=== PATIENT | female | born 1950 | race Caucasian/White ===

== ENCOUNTER → 2017-12-30 12:21 | Outpatient (CLI) | payer OTHER, SELFPAY | PROVIDERS: Family Provider Physician Assistant; PCP Physician Assistant | DX: R35.0 Frequency of micturition (principal); R30.0 Dysuria | CPT/HCPCS: 87086 ==

== ENCOUNTER → 2018-02-26 14:59 | Outpatient (CLI) | payer OTHER, SELFPAY ==
[2018-02-26 16:22] LABS: Alanine Aminotransferase 33 IU/L (9-52); Albumin 4.6 g/dL (3.5-5.0); Albumin Globulin Ratio 1.6 (1.0-2.8); Alkaline Phosphatase 68 U/L (38-126); Aspartate Aminotransferase 29 IU/L (14-36); BUN Creatinine Ratio 14.3 (6-22); Bilirubin Total 0.5 mg/dL (0.2-1.3); Blood Urea Nitrogen 10 mg/dL (7-17); Calcium 9.7 mg/dL (8.4-10.2); Carbon Dioxide 29 mmol/L (22-32); Chloride 90 mmol/L (98-107); Cholesterol 209 mg/dL (140-199); Estimated Glomerular Filt Rate > 60.0 mL/min (>60); Globulin 2.9 g/dL (1.7-4.1); Glucose 101 mg/dL (80-110); HDL Cholesterol 93 mg/dL (40-60); HEMOLYSIS < 15 (0-50); LDL Cholesterol Calculated 89 mg/dL (<100); Potassium 4.1 mmol/L (3.4-5.1); Sodium 134 mmol/L (137-145); Total Protein 7.5 g/dL (6.3-8.2); Triglycerides 134 mg/dL (35-150)
[2018-02-26 16:37] LABS: Microalbumi Creatinin Ratio Ur 6.6 ug/mg CR (<30); Microalbumin Urine Random < 0.6 mg/dL (0-1.6)
[2018-03-02 15:30] LABS: Fecal Immunochemical Test NOT DETECTED
== END ==
PROVIDERS: PCP Physician Assistant; Visit Provider Physician Assistant
DX: E03.9 Hypothyroidism, unspecified (principal); E78.2 Mixed hyperlipidemia; I10 Essential (primary) hypertension; M81.0 Age-related osteoporosis without current pathological fracture; Z12.11 Encounter for screening for malignant neoplasm of colon
CPT/HCPCS: 36415; 80053; 80061; 82043; 82274; 82306; 82570; 84443

== ENCOUNTER → 2018-08-25 15:10 | Outpatient (CLI) | payer OTHER, SELFPAY ==
--- NOTE | 2018-08-25 | DI.MG.S_ITS ---
BILATERAL DIGITAL SCREENING MAMMOGRAM 3D/2D WITH CAD: 08/25/2018 CLINICAL: Routine screening. Comparison is made to exams dated: 02/01/2016 mammogram, 11/22/2014 mammogram, and 11/10/2014 mammogram - [facility]. There are scattered fibroglandular elements in both breasts. Current study was also evaluated with a Computer Aided Detection (CAD) system. No significant masses, calcifications, or other findings are seen in either breast. There has been no significant interval change. IMPRESSION: NEGATIVE There is no mammographic evidence of malignancy. A 1 year screening mammogram is recommended. This exam was interpreted at Station ID: [id number]. NOTE: For mammograms, a report in lay terms will be sent to the patient. Approximately 15% of breast malignancies will not be visualized mammographically. In the management of a palpable breast mass, a negative mammogram must not discourage biopsy of a clinically suspicious lesion. Electronically Signed By: Kassie pham/mindi:08/25/2018 21:03:22 copy to: JERMAINE SOLIS letter sent: Normal Exam ACR BI-RADS Category 1: Negative 3341F
== END ==
PROVIDERS: Family Provider Physician Assistant; PCP Physician Assistant; Visit Provider Physician Assistant
DX: Z12.31 Encounter for screening mammogram for malignant neoplasm of breast (principal)
CPT/HCPCS: 77063; 77067

== ENCOUNTER → 2018-09-24 13:57 | Outpatient (CLI) | payer OTHER, SELFPAY ==
[2018-09-24 14:55] LABS: BUN Creatinine Ratio 17.1 (6-22); Blood Urea Nitrogen 12 mg/dL (7-17); Calcium 10.2 mg/dL (8.4-10.2); Carbon Dioxide 34 mmol/L (22-32); Chloride 87 mmol/L (98-107); Estimated Glomerular Filt Rate > 60.0 mL/min (>60); Glucose 100 mg/dL (80-110); HEMOLYSIS < 15 (0-50); Potassium 3.9 mmol/L (3.4-5.1); Sodium 131 mmol/L (137-145)
[2018-09-24 17:39] LABS: Thyroid Stimulating Hormone 2.79 uIU/mL (0.47-4.68)
== END ==
PROVIDERS: PCP Physician Assistant; Visit Provider Physician Assistant
DX: E03.9 Hypothyroidism, unspecified (principal); I10 Essential (primary) hypertension
CPT/HCPCS: 36415; 80048; 84443

== ENCOUNTER → 2018-10-13 15:14 | Outpatient (CLI) | payer OTHER, SELFPAY | PROVIDERS: PCP Physician Assistant; Visit Provider Physician Assistant | DX: M85.852 Other specified disorders of bone density and structure, left thigh (principal); Z78.0 Asymptomatic menopausal state; E07.9 Disorder of thyroid, unspecified; Z82.62 Family history of osteoporosis | CPT/HCPCS: 77080 ==

== ENCOUNTER → 2019-01-18 14:49 | Outpatient (CLI) | payer OTHER, SELFPAY ==
--- NOTE | 2019-01-24 14:12 | PM.PFT.1 ---
Pulmonary Function Test Referral & Results Date Patient Seen: 01/18/19 Requesting provider: Margoth [place] Indication: Cough Results: The spirometry demonstrates an FVC of 3.23 L which is 103% of predicted. The FEV1 was measured at 2.40 L which is 100% of predicted. The FEV1/FVC ratio was 74 which is 96 % of predicted. Following the administration of bronchodilator there was no appreciable change to above normal numbers. Lung volumes show an SVC of 3.22 L which is 109% of predicted. The diffusing capacity was measured at 16.18 which is 66 % of predicted. No hemoglobin value was provided, so no correction for potential anemia could be made, if appropriate. The maximum voluntary ventilation was reduced Interpretation: This study demonstrates normal spirometry but reduced diffusing capacity, suggesting disease of the capillary alveolar level Reduction in maximum voluntary ventilation without other evidence of abnormality suggest possible neuromuscular disorder Clinical correlation suggested
== END ==
PROVIDERS: PCP Physician Assistant; Visit Provider Physician Assistant
DX: R05 Cough (principal)
CPT/HCPCS: 94060; 94726; 94729

== ENCOUNTER → 2019-03-11 16:11 | Outpatient (CLI) | payer OTHER, SELFPAY ==
[2019-03-14 22:36] LABS: Fecal Immunochemical Test DETECTED (NOT DETECTED)
== END ==
PROVIDERS: PCP Physician Assistant; Visit Provider Physician Assistant
DX: Z12.11 Encounter for screening for malignant neoplasm of colon (principal)
CPT/HCPCS: 82274

== ENCOUNTER 2019-04-28 08:43 | Day surgery (SDC) | payer OTHER, SELFPAY ==
[2019-04-28] VITALS (7 sets, daily range): BP systolic 93–124; BP diastolic 62–86; PULSE 80–103; RESP 9–16; TEMP 36–36.4; O2SAT 93–96; BMI 16.4
--- NOTE | 2019-04-28 | PATH_ITS ---
[facility] Accession Number: [id number] . 01 Material submitted: . colon - POLYP AT 15CM . 01 Clinical history: . SCREENING COLONOSCOPY W/FOBT . 02 Diagnosis: Colon at 15 cm, Polyp: Tubular adenoma. MRV 04/29/2019 1107 Local . 02 Electronically signed: . Coy Duvall MD, PhD, Pathologist NPI- [id number] . 01 Gross description: . POLYP AT 15CM: Received in formalin are multiple fragment(s) of serna, soft tissue measuring 0.1 x 0.1 x 0.1 cm to 0.3 x 0.2 x 0.2 cm submitted entirely in 1 cassette(s) [place] [place]28/[place] 2325 Local . 02 Pathologist provided ICD-10: D12.6 . 02 CPT . 297836 Performed at: 01 [facility] [address] [facility], [place], [place] [id number] MD Josef Domínguez MD Phone: [phone] Performed at: 02 [facility] [address] [place], [place] [id number] MD Nikky Hendricks MD Phone: [phone]
--- NOTE | 2019-04-28 09:46 | PM.HP.1 ---
History of Present Illness History of Present Illness Date Patient Seen: 04/28/19 Time Patient Seen: 09:46 Chief complaint: [id number] SCREENING COLONOSCOPY W/FOBT Narrative: The patient is a woman who has never had a colonoscopy here for screening exam. She had a positive fecal occult blood test Patient History Medical History Constipation (Acute) Eczema (Acute) Environmental allergies (Acute) Former smoker, stopped smoking in distant past (Acute) GERD (gastroesophageal reflux disease) (Acute) Hyperlipidemia (Chronic) Hypertension (Chronic) Hypothyroidism (Chronic) Surgical History Anesthesia (Resolved) Fracture of wrist (Resolved) History of cataract removal with insertion of prosthetic lens (~2013) Status post breast reduction Status post loop electrosurgical excision procedure (LEEP) of cervix (~2013) Status post tonsillectomy and adenoidectomy Family & Social History Family History Father Age: 94 Cataracts, bilateral Chronic obstructive pulmonary disease, unspecified COPD type Mother Cerebrovascular accident (CVA), unspecified mechanism Congestive heart failure Sister Cataracts, bilateral Social History: household members none Tobacco & Substance use: Smoking Status Former smoker alcohol intake former Meds Home Medications and Allergies Home Medications Medication Instructions Recorded Confirmed Type clobetasol 0.5 % TOPICAL BID #1 tube 03/04/17 04/28/19 Rx Multivitamin See Rx Instructions .ROUTE .COMPLEX 02/22/18 04/28/19 History betamethasone dipropionate 0.05 % 1 applictn TOP BID PRN #60 ml 03/23/18 04/28/19 Rx lotion zolpidem 5 mg tablet 2.5 - 5 mg PO HS #30 tab 07/26/18 04/28/19 Rx duloxetine 60 mg capsule,delayed 60 mg PO QDAY #90 cap 09/22/18 04/28/19 Rx release lamotrigine 250 mg tablet,extended 250 mg PO HS #90 tab 09/22/18 04/28/19 Rx release 24 hr felodipine 5 mg tablet,extended 5 mg PO QDAY #90 tab 12/21/18 04/28/19 Rx release 24 hr chlorthalidone 25 mg tablet See Rx Instructions .ROUTE 12/31/18 04/28/19 Rx .COMPLEX #90 tab simvastatin 20 mg tablet See Rx Instructions .ROUTE 12/31/18 04/28/19 Rx .COMPLEX #90 tab metoprolol tartrate 25 mg tablet 12.5 mg PO BID #90 tab 01/17/19 04/28/19 Rx sulfacetamide sodium 10 % shampoo See Rx Instructions .ROUTE 02/09/19 04/28/19 Rx .COMPLEX #237 milliliter Synthroid 112 mcg tablet 112 mcg PO DAILY #90 tab NS 03/22/19 04/28/19 Rx clonazepam 0.5 mg tablet 0.5 mg PO HS #30 tab 04/18/19 04/28/19 Rx fexofenadine [Bharti Allergy] 60 mg PO SEEINSTR 04/28/19 04/28/19 History omeprazole magnesium [Prilosec OTC] 20 mg PO DAILY PRN 04/28/19 04/28/19 History Allergies Allergy/AdvReac Type Severity Reaction Status Date / Time oxycodone [OXYCODONE] AdvReac Intermediate NAUSEA AND Verified 04/28/19 09:04 VOMITING lisinopril [LISINOPRIL] AdvReac Mild COUGH Verified 04/28/19 09:04 Review of Systems Review of Systems ROS Unobtainable: All systems reviewed & are unremarkable except as noted in HPI and below Exam Vital Signs (past 8 hours): - 04/28/19 09:12 Temperature 96.8 F L Pulse Rate 103 H Respiratory Rate 16 Blood Pressure 124/86 Pulse Oximetry 96 Oxygen Delivery Method Room Air Narrative Exam Narrative: Pleasant cooperative patient no apparent distress. Lungs are clear to auscultation. No rales or rhonchi. Heart regular rate and rhythm no murmur gallop. Abdomen is soft nontender without mass. No obvious hernias. Patient is alert and oriented x3. Assessment & Plan Assessment & Plan narrative: The patient for a screening colonoscopy. I have discussed the procedure with them. Risks of bleeding, perforation which would necessitate major operation, failure to find remove all lesions, the potential tattoo were all discussed. All questions were answered. They wished to proceed.
[2019-04-28] MEDS: MIDAZOLAM 5 MG/5 ML VIAL IV (09:48)
[2019-04-28] MEDS: fentaNYL 250 MCG/5 ML INJ IV (09:48)
--- NOTE | 2019-04-28 09:52 | PM.PREOP ---
Pre-operative Note Interval Note History & Physical reviewed/Exam performed by Physician: Yes Changes to H&P: No ASA Class (for procedural sedation): II
--- NOTE | 2019-04-28 10:15 | PM.OP.ENDO ---
Operative Date/Time/Diagnoses Date of procedure: 04/28/19 Time of procedure: 10:15 Pre-op diagnosis: Positive fecal occult blood test. This is her 1st colonoscopy Post-op diagnosis: same (Polyp at 15 cm and 1 near the anal verge placed in the same container) Procedure & Clinicians Study performed: Colonoscopy with cold biopsy Same procedure as scheduled: Yes Indications: Screening Surgeon: Alejandro Nichole Procedure Notes SCOAP/Timeout: Performed Procedure in detail: The patient was placed in the left lateral decubitus position and underwent IV sedation directed by the surgeon consisting of fentanyl and Versed. Digital exam was unremarkable. The scope was inserted and advanced through the rectum into the sigmoid, descending, transverse, and ascending colon. Pressure was applied we made our way into the cecum. The cecum was identified by the ileocecal valve and the appendiceal opening.. The scope was gradually brought out. Two Polyps were found. One was at 15 cm from the anal verge and 1 was near the anal verge. These were placed in the same container after completely removing them with cold biopsy forceps. The scope ultimately was retroflexed in the rectum. The appearance was normal. The scope was removed and the patient tolerated the procedure well. The prep was very good Scope withdrawal time: 8 minutes(10 total) Sedation minutes: 37 Findings: polyp (Two small) Specimen(s): other (Polyps) Complications: none Post-procedure Recommendations: Colonscopy in 5 years Follow up: as needed Disposition: PACU
[2019-04-28] MEDS: ONDANSETRON 4 MG/2 ML INJ IV (10:16)
--- NOTE | 2019-04-28 10:53 | SUR.PHASEII ---
Patient mildly drowsy. Call light within reach.
--- NOTE | 2019-04-28 11:00 | SUR.PHASEII ---
O2 sat 89-95%RA. Deep breaths encouraged.
== END 2019-04-28 11:22 | disposition home or self-care (01) ==
PROVIDERS: PCP Physician Assistant; Visit Provider Specialist
PROC: 0DJD8ZZ Inspection of Lower Intestinal Tract, Via Natural or Artificial Opening Endoscopic (ICD-10-PCS; CPT 45378; principal; 2019-04-28 09:45)
DX: D12.6 Benign neoplasm of colon, unspecified (principal); K59.00 Constipation, unspecified; I10 Essential (primary) hypertension; E78.5 Hyperlipidemia, unspecified; E03.9 Hypothyroidism, unspecified
CPT/HCPCS: 45380; 99152; 99153; J2250; J2405; J3010

== ENCOUNTER → 2019-11-07 15:44 | Outpatient (CLI) | payer OTHER, SELFPAY ==
--- NOTE | 2019-11-07 16:01 | DI.MG.S_ITS ---
Patient Name: KATIE LEE date: 1950 Sex: F Attending Physician: Rubén Indications: Date: 11/07/2019 15:58 At the request of: YADIRA SOLIS Procedure: MM screening mammo BI BILATERAL DIGITAL SCREENING MAMMOGRAM 3D/2D WITH CAD: 11/07/2019 CLINICAL: Routine screening. Comparison is made to exams dated: 08/25/2018 mammogram, 02/01/2016 mammogram, and 11/22/2014 mammogram - [facility]. There are scattered fibroglandular elements in both breasts. Current study was also evaluated with a Computer Aided Detection (CAD) system. No significant masses, calcifications, or other findings are seen in either breast. There has been no significant interval change. IMPRESSION: NEGATIVE There is no mammographic evidence of malignancy. A 1 year screening mammogram is recommended. This exam was interpreted at Station ID: [id number]. NOTE: For mammograms, a report in lay terms will be sent to the patient. Approximately 15% of breast malignancies will not be visualized mammographically. In the management of a palpable breast mass, a negative mammogram must not discourage biopsy of a clinically suspicious lesion. Electronically Signed By: Eugene Contreras M.D., jr/mindi:11/07/2019 17:04:09 copy to: JERMAINE SOLIS letter sent: Normal Exam ACR BI-RADS Category 1: Negative 3341F
[2019-11-07 17:00] LABS: Creatinine Urine Random 151.8 mg/dL
[2019-11-07 17:04] LABS: Microalbumi Creatinin Ratio Ur 8.5 ug/mg CR (<30); Microalbumin Urine Random 1.3 mg/dL (0-1.6)
[2019-11-07 18:06] LABS: Alanine Aminotransferase 28 IU/L (<35); Albumin 4.7 g/dL (3.5-5.0); Albumin Globulin Ratio 1.5 (1.0-2.8); Alkaline Phosphatase 74 U/L (38-126); Aspartate Aminotransferase 41 IU/L (14-36); BUN Creatinine Ratio 16.9 (6-22); Bilirubin Total 0.8 mg/dL (0.2-1.3); Blood Urea Nitrogen 13 mg/dL (7-17); Calcium 9.5 mg/dL (8.4-10.2); Carbon Dioxide 28 mmol/L (22-32); Chloride 91 mmol/L (98-107); Cholesterol 215 mg/dL (140-199); Estimated Glomerular Filt Rate > 60.0 mL/min (>60); Globulin 3.2 g/dL (1.7-4.1); Glucose 100 mg/dL (80-110); HDL Cholesterol 89 mg/dL (40-60); HEMOLYSIS < 15 (0-50); LDL Cholesterol Calculated 90 mg/dL (<100); Potassium 3.2 mmol/L (3.4-5.1); Sodium 131 mmol/L (137-145); Total Protein 7.9 g/dL (6.3-8.2); Triglycerides 182 mg/dL (35-150)
[2019-11-07 18:36] LABS: Thyroid Stimulating Hormone 1.17 uIU/mL (0.47-4.68)
== END ==
PROVIDERS: PCP Physician Assistant; Referring Provider Physician Assistant; Visit Provider Physician Assistant
DX: Z12.31 Encounter for screening mammogram for malignant neoplasm of breast (principal); E03.9 Hypothyroidism, unspecified; E78.2 Mixed hyperlipidemia; I10 Essential (primary) hypertension; E78.1 Pure hyperglyceridemia
CPT/HCPCS: 36415; 77063; 77067; 80053; 80061; 82043; 82570; 84443

== ENCOUNTER → 2019-12-19 15:26 | Outpatient (CLI) | payer OTHER, SELFPAY | PROVIDERS: PCP Registered Nurse Diabetes Educator; Visit Provider Registered Nurse Diabetes Educator | DX: R82.90 Unspecified abnormal findings in urine (principal) | CPT/HCPCS: 87077; 87086 ==

== ENCOUNTER → 2020-01-25 13:22 | Outpatient (CLI) | payer OTHER, SELFPAY ==
[2020-01-25 14:52] LABS: Alanine Aminotransferase 32 IU/L (<35); Albumin 4.6 g/dL (3.5-5.0); Albumin Globulin Ratio 1.3 (1.0-2.8); Alkaline Phosphatase 82 U/L (38-126); Aspartate Aminotransferase 39 IU/L (14-36); BUN Creatinine Ratio 15.7 (6-22); Bilirubin Total 0.8 mg/dL (0.2-1.3); Blood Urea Nitrogen 13 mg/dL (7-17); Calcium 9.8 mg/dL (8.4-10.2); Carbon Dioxide 29 mmol/L (22-32); Chloride 96 mmol/L (98-107); Estimated Glomerular Filt Rate > 60.0 mL/min (>60); Globulin 3.5 g/dL (1.7-4.1); Glucose 109 mg/dL (80-110); HEMOLYSIS < 15 (0-50); Potassium 3.2 mmol/L (3.4-5.1); Sodium 135 mmol/L (137-145); Total Protein 8.1 g/dL (6.3-8.2)
== END ==
PROVIDERS: PCP Registered Nurse Diabetes Educator; Referring Provider Registered Nurse Diabetes Educator; Visit Provider Registered Nurse Diabetes Educator
DX: E03.9 Hypothyroidism, unspecified (principal); R74.8 Abnormal levels of other serum enzymes
CPT/HCPCS: 36415; 80053

== ENCOUNTER → 2020-04-30 15:26 | Outpatient (CLI) | payer OTHER, SELFPAY ==
--- NOTE | 2020-04-30 15:27 | DI.US.S_ITS ---
PROCEDURE: US ABDOMEN LIMITED INDICATIONS: LFT elevation, alcoholism in remission TECHNIQUE: Real-time focused scanning was performed of the abdomen, with image documentation. COMPARISON: [facility], CT, THORAX WITHOUT CONTRAST, 02/21/2015, 9:13. FINDINGS: Liver is diffusely increased in echogenicity. Normal hepatic size. Within the left hepatic lobe, there is a hypoechoic oval lesion with indistinct margins measuring approximately 1.0 x 0.6 x 0.9 cm. No definitive posterior acoustic enhancement. There is no internal vascularity on color Doppler interrogation. No gallstones identified. Normal gallbladder wall. No pericholecystic fluid. Negative sonographic Merchant sign. No biliary dilatation. The pancreas is hyperechoic in appearance suggestive of fatty infiltration. IMPRESSION: 1. Increased hepatic echogenicity is nonspecific but likely represents steatosis. 2. Oval hypoechoic lesion within the left hepatic lobe is suggestive of a cyst, but given the indistinct margins and absence of definitive posterior acoustic enhancement, a small solid lesion cannot be excluded. Consider further evaluation with a liver protocol MRI or CT. Dictated by: Juanjo Terrazas [facility] Interpreted: Josef Abernathy MD on 04/30/2020 at 16:14 Approved by: Josef Abernathy M.D. on 05/01/2020 at 16:04
== END ==
PROVIDERS: PCP Registered Nurse Diabetes Educator; Referring Provider Registered Nurse Diabetes Educator; Visit Provider Registered Nurse Diabetes Educator
DX: E87.1 Hypo-osmolality and hyponatremia (principal); K76.9 Liver disease, unspecified; E87.6 Hypokalemia; R74.8 Abnormal levels of other serum enzymes; I10 Essential (primary) hypertension; F10.21 Alcohol dependence, in remission
CPT/HCPCS: 76705

== ENCOUNTER → 2020-05-10 17:36 | Outpatient (CLI) | payer OTHER, SELFPAY ==
--- NOTE | 2020-05-10 17:37 | DI.MRI.S_ITS ---
PROCEDURE: MR ABDOMEN WO/W CON INDICATIONS: liver lesion TECHNIQUE: Coronal HASTE, axial 2D FLASH in- and [id number]; axial breath-hold T2 FSE. Dynamic axial VIBE during the administration of contrast; post-contrast coronal VIBE or 2D FLASH with fat saturation from the hepatic dome to the iliac crests. Optional diffusion weighted imaging and ADC may be performed. COMPARISON: [facility], US, US ABDOMEN LIMITED, 04/30/2020, 15:49. FINDINGS: Image quality: Excellent. Lung bases: No basal pleural effusions. Heart size is normal. Solid organs: Liver is normal in size and enhancement. There is a small ovoid cyst corresponding to the finding on ultrasound from 04/30/20, within the anterior left lateral hepatic segment. This shows no internal enhancement or mural enhancing nodularity. Gallbladder appears normal with a Phrygian Cap morphology at the distal fundus.. Biliary system is non dilated. Pancreas is normal in morphology. Spleen is normal in size and enhancement. No adrenal nodules. Both kidneys demonstrate normal size and enhancement, without hydronephrosis. Nodes and vessels: No retroperitoneal or mesenteric adenopathy by size criteria. Aorta and inferior vena cava are normal in size. Bowel and peritoneum: Unenhanced bowel loops are normal in caliber. No free fluid. Bones and soft tissues: No ventral hernias. Bone marrow is normal in overall signal. IMPRESSION: Small ovoid simple cyst produces the hypoechoic structure of recent ultrasound concern. No follow-up recommended. Dictated by: Carson Gunn M.D. on 05/11/2020 at 9:31 Approved by: Carson Gunn M.D. on 05/11/2020 at 10:23
== END ==
PROVIDERS: PCP Registered Nurse Diabetes Educator; Referring Provider Registered Nurse Diabetes Educator; Visit Provider Registered Nurse Diabetes Educator
DX: K76.89 Other specified diseases of liver (principal); R74.8 Abnormal levels of other serum enzymes; F10.21 Alcohol dependence, in remission
CPT/HCPCS: 74183

== ENCOUNTER → 2020-05-15 15:19 | Outpatient (CLI) | payer OTHER, SELFPAY ==
[2020-05-15 17:22] LABS: Alanine Aminotransferase 31 IU/L (<35); Albumin 4.3 g/dL (3.5-5.0); Albumin Globulin Ratio 1.3 (1.0-2.8); Alkaline Phosphatase 70 U/L (38-126); Aspartate Aminotransferase 36 IU/L (14-36); BUN Creatinine Ratio 15.1 (6-22); Bilirubin Total 0.5 mg/dL (0.2-1.3); Blood Urea Nitrogen 11 mg/dL (7-17); Calcium 9.7 mg/dL (8.4-10.2); Carbon Dioxide 32 mmol/L (22-32); Chloride 94 mmol/L (98-107); Estimated Glomerular Filt Rate > 60.0 mL/min (>60); Globulin 3.3 g/dL (1.7-4.1); Glucose 95 mg/dL (80-110); HEMOLYSIS < 15 (0-50); Potassium 3.7 mmol/L (3.4-5.1); Sodium 133 mmol/L (137-145); Total Protein 7.6 g/dL (6.3-8.2)
[2020-05-15 17:27] LABS: HEMOLYSIS < 15 (0-50); Iron 135 ug/dL (37-170)
[2020-05-15 17:39] LABS: Percent Iron Saturation 47 % (15-50); Total Iron Binding Capacity 286 ug/dL (265-497); Transferrin 236 mg/dL (206-381)
[2020-05-15 18:52] LABS: Ferritin 135 ng/mL (11-264)
[2020-05-16 04:43] LABS: Hepatitis B Core AB w/Reflex Negative (Negative)
[2020-05-16 06:35] LABS: Hepatitis A Ab IgM Negative (Negative); Hepatitis A Ab Total Positive (Negative)
[2020-05-17 19:16] LABS: Hepatitis B Surface Antigen NEGATIVE s/c (NEGATIVE)
[2020-05-17 19:18] LABS: Hep C Virus Ab w/Reflex Quant NEGATIVE s/c (NEGATIVE)
== END ==
PROVIDERS: PCP Registered Nurse Diabetes Educator; Referring Provider Registered Nurse Diabetes Educator; Visit Provider Registered Nurse Diabetes Educator
DX: E87.1 Hypo-osmolality and hyponatremia (principal); R74.8 Abnormal levels of other serum enzymes; E87.6 Hypokalemia; I10 Essential (primary) hypertension
CPT/HCPCS: 36415; 80053; 82728; 83540; 83550; 86704; 86708; 86803; 87340

== ENCOUNTER → 2020-09-03 15:35 | Outpatient (CLI) | payer OTHER, SELFPAY ==
[2020-09-03 17:05] LABS: Add Manual Diff / Slide Review NO; Basophils Absolute Auto 100 /uL (0-100); Basophils Percent Auto 1.1 % (0-2); Eosinophils Absolute Auto 200 /uL (0-450); Hematocrit 40.9 % (36-46); Hemoglobin 14.3 g/dL (12.0-16.0); Lymphocytes Absolute Auto 1700 /uL (1100-4500); Lymphocytes Percent Auto 21.3 % (25-40); Mean Corpuscular Hemoglobin 34.2 PG (26-34); Mean Corpuscular Volume 97.8 fL (80-100); Monocytes Absolute Auto 1100 /uL (0-900); Monocytes Percent Auto 14.3 % (3-14); Neutrophils Absolute Auto 4700 /uL (1500-7000); Neutrophils Percent Auto 60.3 % (50-75); Platelet Count 374 X10^3/uL (150-400); Red Blood Cell Count 4.19 X10^6/uL (4.0-5.2); White Blood Cell Count 7.9 X10^3/uL (4.5-11.0)
[2020-09-03 17:16] LABS: Alanine Aminotransferase 23 IU/L (<35); Albumin 4.4 g/dL (3.5-5.0); Albumin Globulin Ratio 1.3 (1.0-2.8); Alkaline Phosphatase 75 U/L (38-126); Aspartate Aminotransferase 35 IU/L (14-36); BUN Creatinine Ratio 14.9 (6-22); Bilirubin Total 0.6 mg/dL (0.2-1.3); Blood Urea Nitrogen 11 mg/dL (7-17); Calcium 9.7 mg/dL (8.4-10.2); Carbon Dioxide 28 mmol/L (22-32); Chloride 97 mmol/L (98-107); Estimated Glomerular Filt Rate > 60.0 mL/min (>60); Globulin 3.4 g/dL (1.7-4.1); Glucose 107 mg/dL (80-110); HEMOLYSIS < 15 (0-50); Potassium 3.8 mmol/L (3.4-5.1); Sodium 136 mmol/L (137-145); Total Protein 7.8 g/dL (6.3-8.2)
[2020-09-03 17:54] LABS: HIV 1 & 2 Ab/Ag 4th Gen Combo NEGATIVE (NEGATIVE)
[2020-09-04 05:14] LABS: HBsAg Screen Negative (Negative); Hep A AB IgM Negative (Negative); Hepatitis A Ab, Total Positive (Negative); Hepatitis B Core Antibody IgM Negative (Negative); Hepatitis B Core Total Negative (Negative); Hepatitis B Surface AB, Qual Non Reactive (.); Hepatitis C Virus Ab <0.1 s/co ratio (0.0-0.9)
[2020-09-05 12:38] LABS: QuantiFERON Mitogen Value >10.00 IU/mL (.); QuantiFERON Nil Value <0.00 IU/mL (.); QuantiFERON TB Gold Plus Negative (Negative); QuantiFERON TB1 Ag Value 0.02 IU/mL (.); QuantiFERON TB2 Ag Value 0.03 IU/mL (.)
== END ==
PROVIDERS: PCP Registered Nurse Diabetes Educator; Referring Provider Physician Assistant; Visit Provider Physician Assistant
DX: L40.0 Psoriasis vulgaris (principal)
CPT/HCPCS: 36415; 80053; 80074; 85025; 86480; 86704; 86706; 86708; 87389

== ENCOUNTER → 2020-09-19 15:19 | Outpatient (CLI) | payer OTHER, SELFPAY ==
[2020-09-19 16:07] LABS: Add Manual Diff / Slide Review NO; Basophils Absolute Auto 100 /uL (0-100); Eosinophils Absolute Auto 200 /uL (0-450); Hematocrit 41.5 % (36-46); Hemoglobin 14.4 g/dL (12.0-16.0); Lymphocytes Absolute Auto 1500 /uL (1100-4500); Lymphocytes Percent Auto 14.7 % (25-40); Mean Corpuscular HGB Conc 34.6 % (30-36); Mean Corpuscular Hemoglobin 33.9 PG (26-34); Mean Corpuscular Volume 98.1 fL (80-100); Monocytes Absolute Auto 1400 /uL (0-900); Monocytes Percent Auto 13.3 % (3-14); Neutrophils Absolute Auto 7300 /uL (1500-7000); Platelet Count 376 X10^3/uL (150-400); Red Blood Cell Count 4.23 X10^6/uL (4.0-5.2); White Blood Cell Count 10.5 X10^3/uL (4.5-11.0)
[2020-09-19 16:25] LABS: Alanine Aminotransferase 25 IU/L (<35); Albumin 4.4 g/dL (3.5-5.0); Albumin Globulin Ratio 1.3 (1.0-2.8); Alkaline Phosphatase 80 U/L (38-126); Aspartate Aminotransferase 40 IU/L (14-36); BUN Creatinine Ratio 19.8 (6-22); Bilirubin Total 0.6 mg/dL (0.2-1.3); Blood Urea Nitrogen 19 mg/dL (7-17); Calcium 9.9 mg/dL (8.4-10.2); Carbon Dioxide 26 mmol/L (22-32); Chloride 97 mmol/L (98-107); Estimated Glomerular Filt Rate 57.8 mL/min (>60); Globulin 3.5 g/dL (1.7-4.1); Glucose 114 mg/dL (80-110); HEMOLYSIS < 15 (0-50); Potassium 3.2 mmol/L (3.4-5.1); Sodium 136 mmol/L (137-145); Total Protein 7.9 g/dL (6.3-8.2)
== END ==
PROVIDERS: PCP Registered Nurse Diabetes Educator; Referring Provider Physician Assistant; Visit Provider Physician Assistant
DX: Z79.899 Other long term (current) drug therapy (principal); I10 Essential (primary) hypertension
CPT/HCPCS: 36415; 80053; 85025

== ENCOUNTER → 2020-11-23 15:45 | Outpatient (CLI) | payer OTHER, SELFPAY ==
[2020-11-23 17:55] LABS: Hematocrit 40.2 % (36-46); Mean Corpuscular HGB Conc 34.9 % (30-36); Mean Corpuscular Hemoglobin 34.4 PG (26-34); Mean Corpuscular Volume 98.5 fL (80-100); Platelet Count 449 X10^3/uL (150-400); Red Blood Cell Count 4.08 X10^6/uL (4.0-5.2); Red Cell Distribution Width 12.4 % (11.6-14.8); White Blood Cell Count 8.6 X10^3/uL (4.5-11.0)
[2020-11-23 18:35] LABS: Alanine Aminotransferase 18 IU/L (<35); Albumin 4.1 g/dL (3.5-5.0); Albumin Globulin Ratio 1.2 (1.0-2.8); Alkaline Phosphatase 75 U/L (38-126); Aspartate Aminotransferase 27 IU/L (14-36); Bilirubin Total 0.5 mg/dL (0.2-1.3); Blood Urea Nitrogen 12 mg/dL (7-17); Calcium 9.7 mg/dL (8.4-10.2); Carbon Dioxide 29 mmol/L (22-32); Chloride 99 mmol/L (98-107); Cholesterol 217 mg/dL (140-199); Estimated Glomerular Filt Rate > 60.0 mL/min (>60); Globulin 3.5 g/dL (1.7-4.1); Glucose 96 mg/dL (80-110); HDL Cholesterol 101 mg/dL (40-60); HEMOLYSIS < 15 (0-50); LDL Cholesterol Calculated 81 mg/dL (<100); Potassium 3.7 mmol/L (3.4-5.1); Sodium 135 mmol/L (137-145); Total Protein 7.6 g/dL (6.3-8.2); Triglycerides 177 mg/dL (35-150)
[2020-11-23 19:05] LABS: TSH w/ Reflex to FT4 0.39 uIU/mL (0.47-4.68)
[2020-11-23 20:00] LABS: Free T4, Direct Thyroxine 1.68 ng/dL (0.78-2.19)
== END ==
PROVIDERS: PCP Registered Nurse Diabetes Educator; Referring Provider Physician Assistant; Visit Provider Physician Assistant
DX: L40.0 Psoriasis vulgaris (principal); E03.9 Hypothyroidism, unspecified; E78.2 Mixed hyperlipidemia; E87.1 Hypo-osmolality and hyponatremia; E87.6 Hypokalemia; I10 Essential (primary) hypertension; R74.8 Abnormal levels of other serum enzymes
CPT/HCPCS: 36415; 80053; 80061; 84439; 84443; 85027

== ENCOUNTER → 2021-01-16 17:27 | Outpatient (CLI) | payer OTHER, SELFPAY ==
[2021-01-16 18:18] LABS: Add Manual Diff / Slide Review NO; Basophils Absolute Auto 100 /uL (0-100); Basophils Percent Auto 1.1 % (0-2); Eosinophils Absolute Auto 300 /uL (0-450); Eosinophils Percent Auto 3.6 % (2-4); Hematocrit 39.6 % (36-46); Hemoglobin 13.6 g/dL (12.0-16.0); Lymphocytes Absolute Auto 1500 /uL (1100-4500); Mean Corpuscular HGB Conc 34.2 % (30-36); Mean Corpuscular Hemoglobin 34.3 PG (26-34); Mean Corpuscular Volume 100.3 fL (80-100); Monocytes Absolute Auto 1200 /uL (0-900); Monocytes Percent Auto 14.7 % (3-14); Neutrophils Absolute Auto 5300 /uL (1500-7000); Neutrophils Percent Auto 62.6 % (50-75); Red Blood Cell Count 3.95 X10^6/uL (4.0-5.2); Red Cell Distribution Width 13.1 % (11.6-14.8); White Blood Cell Count 8.5 X10^3/uL (4.5-11.0)
[2021-01-16 18:32] LABS: Platelet Count 154 X10^3/uL (150-400)
[2021-01-16 18:35] LABS: Alanine Aminotransferase 21 IU/L (<35); Albumin 4.4 g/dL (3.5-5.0); Albumin Globulin Ratio 1.3 (1.0-2.8); Alkaline Phosphatase 70 U/L (38-126); Aspartate Aminotransferase 30 IU/L (14-36); BUN Creatinine Ratio 20.6 (6-22); Bilirubin Total 0.6 mg/dL (0.2-1.3); Blood Urea Nitrogen 14 mg/dL (7-17); Calcium 9.1 mg/dL (8.4-10.2); Carbon Dioxide 28 mmol/L (22-32); Chloride 100 mmol/L (98-107); Estimated Glomerular Filt Rate > 60.0 mL/min (>60); Globulin 3.3 g/dL (1.7-4.1); Glucose 103 mg/dL (80-110); HEMOLYSIS < 15 (0-50); Potassium 3.8 mmol/L (3.4-5.1); Sodium 137 mmol/L (137-145); Total Protein 7.7 g/dL (6.3-8.2)
== END ==
PROVIDERS: PCP Registered Nurse Diabetes Educator; Referring Provider Physician Assistant; Visit Provider Physician Assistant
DX: Z79.899 Other long term (current) drug therapy (principal)
CPT/HCPCS: 36415; 80053; 82172; 85025

== ENCOUNTER → 2021-02-19 17:23 | Outpatient (CLI) | payer OTHER, SELFPAY ==
[2021-02-19 20:29] LABS: BUN Creatinine Ratio 17.3 (6-22); Blood Urea Nitrogen 13 mg/dL (7-17); Calcium 9.5 mg/dL (8.4-10.2); Carbon Dioxide 27 mmol/L (22-32); Chloride 95 mmol/L (98-107); Estimated Glomerular Filt Rate > 60.0 mL/min (>60); Glucose 91 mg/dL (80-110); HEMOLYSIS < 15 (0-50); Potassium 3.6 mmol/L (3.4-5.1); Sodium 135 mmol/L (137-145)
== END ==
PROVIDERS: PCP Registered Nurse Diabetes Educator; Referring Provider Registered Nurse Diabetes Educator; Visit Provider Registered Nurse Diabetes Educator
DX: I10 Essential (primary) hypertension (principal)
CPT/HCPCS: 36415; 80048

== ENCOUNTER → 2021-02-21 17:38 | Outpatient (CLI) | payer OTHER, SELFPAY ==
[2021-02-21 18:20] LABS: Add Manual Diff / Slide Review NO; Basophils Absolute Auto 100 /uL (0-100); Eosinophils Absolute Auto 300 /uL (0-450); Eosinophils Percent Auto 3.4 % (2-4); Hematocrit 39.7 % (36-46); Hemoglobin 13.8 g/dL (12.0-16.0); Lymphocytes Absolute Auto 1800 /uL (1100-4500); Lymphocytes Percent Auto 18.5 % (25-40); Mean Corpuscular HGB Conc 34.7 % (30-36); Mean Corpuscular Hemoglobin 34.7 PG (26-34); Mean Corpuscular Volume 100.1 fL (80-100); Monocytes Absolute Auto 2000 /uL (0-900); Monocytes Percent Auto 19.8 % (3-14); Neutrophils Absolute Auto 5600 /uL (1500-7000); Neutrophils Percent Auto 57.3 % (50-75); Red Blood Cell Count 3.96 X10^6/uL (4.0-5.2); Red Cell Distribution Width 13.3 % (11.6-14.8); White Blood Cell Count 9.8 X10^3/uL (4.5-11.0)
== END ==
PROVIDERS: PCP Registered Nurse Diabetes Educator; Referring Provider Registered Nurse Diabetes Educator; Visit Provider Registered Nurse Diabetes Educator
DX: E03.9 Hypothyroidism, unspecified (principal); E78.2 Mixed hyperlipidemia; K76.0 Fatty (change of) liver, not elsewhere classified; D47.3 Essential (hemorrhagic) thrombocythemia
CPT/HCPCS: 84443; 85025

== ENCOUNTER 2021-03-01 19:46 | Emergency (ER) | payer OTHER, SELFPAY ==
[2021-03-01 19:50] VITALS: BP 126/73; PULSE 103; RESP 18; TEMP 37; O2SAT 98; BMI 24.0
--- NOTE | 2021-03-01 20:18 | DI.RAD.S_ITS ---
PROCEDURE: XR CHEST 1V INDICATIONS: sneezing fit and syncope. TECHNIQUE: One view of the chest was acquired. COMPARISON: [facility], , CHEST 2 VIEW, 03/08/2013, 12:04. FINDINGS: Surgical changes and devices: None. Lungs and pleura: There is hyperinflation of the lungs with flattening of the hemidiaphragms compatible with COPD. No acute consolidation. No pleural effusions or pneumothorax. Mediastinum: Mediastinal contours appear normal. Heart size is normal. Bones and chest wall: No suspicious bony lesions. Overlying soft tissues appear unremarkable. IMPRESSION: 1. No definite acute cardiopulmonary disease. 2. Findings compatible with COPD. Dictated by: Josef Abernathy M.D. on 03/01/2021 at 21:15 Approved by: Josef Abernathy M.D. on 03/01/2021 at 21:16
--- NOTE | 2021-03-01 20:18 | DI.CT.S_ITS ---
PROCEDURE: CT HEAD/BRAIN WO CON INDICATIONS: sneezing fit and syncope. TECHNIQUE: Noncontrast 4.5 mm thick angled axial sections acquired from the foramen magnum to the vertex, with coronal and sagittal reformats. For radiation dose reduction, the following was used: automated exposure control, adjustment of mA and/or kV according to patient size. COMPARISON: None. FINDINGS: Image quality: Excellent. CSF spaces: Basal cisterns are patent. No extra-axial fluid collections. There is mild cerebral volume loss, with resultant ventricular and sulcal prominence. Brain: No intracranial hemorrhage, mass, or mass effect. There are subcortical, periventricular and deep white matter hypodensities consistent with mild chronic small vessel ischemic changes. A small focal hypodensity in the left caudate head is compatible with a small lacunar infarct of indeterminate acuity. The warner-white matter junction appears preserved. There is intracranial internal carotid artery atherosclerosis. Skull and face: Calvarium and visualized facial bones are intact, without suspicious lesions. Sinuses: Visualized sinuses and mastoids are clear. IMPRESSION: 1. No definite acute intracranial abnormality. 2. Mild cerebral volume loss and chronic white matter small vessel ischemic changes. 3. Small hypodense focus within the left caudate head consistent with a small lacunar infarct of indeterminate acuity. Dictated by: Josef Abernathy M.D. on 03/01/2021 at 21:06 Approved by: Josef Abernathy M.D. on 03/01/2021 at 21:08
--- NOTE | 2021-03-01 20:18 | DI.CT.S_ITS ---
PROCEDURE: CT CERVICAL SPINE WO CON INDICATIONS: sneezing fit and syncope. TECHNIQUE: Noncontrast 3 mm thick sections acquired from the skull base to the T4 level. Sagittal and coronal reformats were then constructed. For radiation dose reduction, the following was used: automated exposure control, adjustment of mA and/or kV according to patient size. COMPARISON: None. FINDINGS: Image quality: Excellent. Bones: No fractures or subluxation. There is straightening of the cervical lordosis. Minimal anterolisthesis demonstrated at C3-C4 and C4-C5 as well as minimal retrolisthesis at C5-C6 and C6-C7. There is moderate to severe degenerative disc disease at C5-C6 and C6-C7 with endplate sclerosis and osteophytosis. Mild to moderate multilevel facet arthropathy also demonstrated throughout the cervical spine. Visualized superior ribs are intact. Soft tissues: Prevertebral soft tissues are normal in thickness. No paravertebral hematomas. No apical pneumothoraces. IMPRESSION: 1. No fracture or subluxation. 2. Straightening of the cervical lordosis with minimal multilevel spondylolisthesis. 3. Moderate to severe degenerative disc disease at C5-C6 and C6-C7. Dictated by: Josef Abernathy M.D. on 03/01/2021 at 21:09 Approved by: Josef Abernathy M.D. on 03/01/2021 at 21:11
--- NOTE | 2021-03-01 20:19 | DI.CT.S_ITS ---
PROCEDURE: CT FACIAL BONES WO CON INDICATIONS: fall, bruising left cheek, neck pain, syncope v. fall TECHNIQUE: Noncontrast 2.5 mm thick axial images acquired from the mandible through the frontal sinuses, with coronal and sagittal reformatting. For radiation dose reduction, the following was used: automated exposure control, adjustment of mA and/or kV according to patient size. COMPARISON: [facility], CT, CT HEAD/BRAIN WO CON, 03/01/2021, 20:28. FINDINGS: Image quality: Excellent. Bones and teeth: Orbital franco are intact. Sinus franco show no fracture or deformity. Nasal bones and septum are intact. Visualized portions of the mandible demonstrate no fractures or subluxation. Zygomatic arches are intact. Pterygoid plates are intact. Visualized portions of the skull base and auditory canals are intact. Sinuses: Paranasal sinuses are aerated, without fluid levels, mucosal thickening, or mucoceles. Mastoid air cells are aerated. Soft tissues: There are bilateral subcutaneous linear fissure calcifications, left greater than right. No soft tissue lacerations or debris. No discrete hematoma collections. The globes appear intact. No intraorbital fluid collections. No enlarged lymph nodes. Vascular: Visualized vascular structures appear normal in the absence of contrast. Bony vascular foramina and canals are intact. IMPRESSION: 1. No acute facial bone fracture identified. 2. Bilateral linear subcutaneous calcifications within the facial soft tissues, left greater than right, are nonspecific but likely dystrophic. Dictated by: Josef Abernathy M.D. on 03/01/2021 at 21:11 Approved by: Josef Abernathy M.D. on 03/01/2021 at 21:15
--- NOTE | 2021-03-01 20:19 | PC.NURSE ---
Placed in C-Collar in triage, patient denied tenderness to c-spine, but tender with movement of head and neck
--- NOTE | 2021-03-01 20:20 | ED_ITS ---
HPI - Syncope General Chief Complaint: Syncope Stated Complaint: HEADACHE 2WKS FALL NOT ROSAURA TO REMEMBER Time Seen by Provider: 03/01/21 20:00 Source: patient Mode of arrival: Ambulatory Limitations: no limitations History of Present Illness HPI narrative: This is a 70-year-old female who comes with complaint of hea daches for several weeks which have been constant with no rule resolution. She has tried [id number] medications with minimal improvement. They have suspected it is related to her hypertension and she has had her medications adjusted. Patient tonight was at home she had which she describes as a sneezing fit and then woke up on the floor. She states she has pain in her neck more on the sides than midline as well as some bruising and pain on her cheek on the right. Patient does not recall feeling like she was going to pass out or fall. Patient continues to have her headache but not significantly worsen. She has no vision changes. No chest pain or shortness of breath. No nausea or vomiting. No numbness, tingling or weakness in her extremities. She denies any loss of bowel or bladder control. No cuts or lacerations on the inside of her cheek or tongue. Patient has not had any diarrhea constipation. She denies any abdominal, back or flank pain. Patient does have a history of hypertension, she is also on methotrexate which they have suspected might be the cause of her h eadaches as well. Patient does have a history of alcohol abuse but states she does not use currently. Former smoker. No recreational drugs. She denies any major surgeries. For primary care is Jc Lewis. Related Data Home Medications Medication Instructions Recorded Confirmed Multivitamin See Rx Instructions .ROUTE .COMPLEX 02/22/18 02/26/21 fexofenadine 60 mg tablet (Bharti 60 mg PO SEEINSTR 04/28/19 02/26/21 Allergy) omeprazole magnesium 20 mg 20 mg PO DAILY PRN 04/28/19 02/26/21 tablet,delayed release (Prilosec OTC) methotrexate sodium 7.5 mg tablet 7.5 mg PO QWEEK 12/11/20 02/26/21 Previous Rx's Medication Instructions Recorded betamethasone dipropionate 0.05 % 1 applic TOP BID PRN #60 ml 11/21/20 lotion sulfacetamide sodium 10 % shampoo See Rx Instructions .ROUTE 11/21/20 .COMPLEX #237 milliliter triamcinolone acetonide 0.1 % 1 applic TOP DAILY #80 gram 11/21/20 topical cream duloxetine 60 mg capsule,delayed 60 mg PO QDAY #90 cap 12/11/20 release simvastatin 20 mg tablet 20 mg PO BEDTIME #90 tab 12/11/20 clobetasol 0.05 % topical ointment See Rx Instructions .ROUTE 01/11/21 .COMPLEX #60 g lamotrigine 250 mg tablet,extended 250 mg PO HS #90 tab 01/11/21 release 24 hr chlorthalidone 25 mg tablet 25 mg PO DAILY #90 tab 01/22/21 metoprolol tartrate 25 mg tablet 12.5 mg PO BID #90 tab 01/22/21 felodipine 5 mg tablet,extended 10 mg PO QDAY #90 tab 01/29/21 release 24 hr Synthroid 112 mcg tablet 112 mcg PO DAILY #90 tab NS 02/22/21 (levothyroxine) clonazepam 0.5 mg tablet See Rx Instructions .ROUTE 02/26/21 .COMPLEX #30 tab Allergies Allergy/AdvReac Type Severity Reaction Status Date / Time oxycodone [OXYCODONE] AdvReac Intermediate NAUSEA AND Verified 03/01/21 19:55 VOMITING lisinopril [LISINOPRIL] AdvReac Mild COUGH Verified 03/01/21 19:55 Review of Systems Review of Systems ROS Unobtainable: All systems reviewed & are unremarkable except as noted in HPI and below Patient History Medical History Constipation Eczema Environmental allergies Fatty liver Former smoker, stopped smoking in distant past GERD (gastroesophageal reflux disease) Hyperlipidemia Hypertension Hypothyroidism Psoriasis Surgical History Anesthesia Fracture of wrist History of cataract removal with insertion of prosthetic lens (~2013) Status post breast reduction Status post loop electrosurgical excision procedure (LEEP) of cervix (~2013) Status post tonsillectomy and adenoidectomy Family History Father Age: 95 Cataracts, bilateral Chronic obstructive pulmonary disease, unspecified COPD type Mother Cerebrovascular accident (CVA), unspecified mechanism Congestive heart failure Sister Cataracts, bilateral Social History household members: none Smoking Status: Former smoker Tobacco: How many years used: 20 second hand exposure: No alcohol intake: former substance use type: does not use Smoking Status: Former smoker Substance Use Type: does not use Exam Narrative Exam Narrative: GEN: C-collar in ED. Patient appears in mild to moderate. Distress. HEAD: No evidence of trauma, no raccoon/Guillaume sign. NECK: Nontender, painless range of motion, trachea midline Positive for Nexus criteria, there is no midline line tenderness of the cervical spine but patient does have some tenderness bilaterally in the side and has discomfort with extension. No distracting injury, altered mental status, neuro deficit, possible EtOH use. Odor of etoh on evaluation. EYES: PERRLA, EOMI ENT: Patient has abrasion on the right forehead with erythema as well as erythema and some mild bruising of the right cheek but no obvious deformities or significant bony tenderness. Trachea is midline, TM's are normal no hemotypanum, Nares are clear, no septal hematoma, no dental or oral injury, airway is normal and with normal occlusion, No bony tenderness RESP: Chest is nontender and has symmetric movement, no ecchymosis, breath sounds are normal no crackles, wheezes or rales CVS: Heart sounds are normal, no murmur noted, No JVD. ABG/GI: Nontender, soft, normal bowel sounds, no distention, no organomegaly, pelvic rock is negative NEURO: Oriented AOx3, neuro is grossly intact, sensation and motor is normal all 4 extremities moving, cranial nerves II through XII are intact, GCS is 15 PSYCH: Normal mood and affect SKIN: Intact, warm and dry, no crepitus and without decubitus BACK: No CVA tenderness, no vertebral tenderness, no step-off's, no crepitus EXT: Atraumatic, hips are nontender, no pedal edema, normal color and temperature, normal range of motion of extremities with normal tendon exam, 2+ pulses in all four extremities Initial Vital Signs Initial Vital Signs: Vital Signs Temperature 98.6 F 03/01/21 19:50 Pulse Rate 103 H 03/01/21 19:50 Respiratory Rate 18 03/01/21 19:50 Blood Pressure 126/73 03/01/21 19:50 Pulse Oximetry 98 03/01/21 19:50 Scores GCS Amery coma scale eye opening: Spontaneous Amery coma scale verbal response: Orientated Opal coma scale motor response: Obey commands Amery coma scale total score: 15 Course Orders Ordered: ED Orders 03/01/21 19:56 EKG-12 Lead Stat 03/01/21 20:14 Complete Blood Count AUTO DIFF Stat Comprehensive Metabolic Panel Stat D Dimer Stat Ethanol (ETOH) Stat Lactate (Lactic Acid) Stat NT-proBNP (BNP-Adult 18+) Stat Partial Thromboplastin Time Stat Prothrombin Time INR Stat Troponin & CK Cardiac Panel Stat 03/01/21 20:18 CT cervical spine wo con Stat CT head/brain wo con Stat XR chest 1V Stat 03/01/21 20:19 CT facial bones wo con Stat 03/01/21 20:24 COVID19 -Nasal swab/Pre-Proc Stat Discontinued Medications Sodium Chloride (Normal Saline 0.9%) 1,000 mls @ 150 mls/hr IV CONT JAVIER Last Admin: 03/01/21 20:56 Dose: 150 mls/hr Documented by: FREDERIC Vital Signs Vital signs: Vital Signs - 8 hr 03/01/21 19:50 03/01/21 22:04 Temperature 98.6 F Pulse Rate 103 H 89 Respiratory Rate 18 18 Blood Pressure 126/73 113/76 Pulse Oximetry 98 99 MDM - Syncope Lab Data Result diagrams: 03/01/21 20:14 03/01/21 20:14 Labs: Lab Results 03/01/21 03/01/21 03/01/21 Range/Units 20:14 20:14 20:14 WBC 8.4 (4.5-11.0) X10^3/uL RBC 3.63 L (4.0-5.2) X10^6/uL Hgb 12.7 (12.0-16.0) g/dL Hct 36.2 (36-46) % MCV 99.7 (80-100) fL MCH 35.1 H (26-34) PG MCHC 35.2 (30-36) % RDW 13.3 (11.6-14.8) % Plt Count 244 (150-400) X10^3/uL Neut % (Auto) 66.8 (50-75) % Lymph % (Auto) 14.1 L (25-40) % [place] % (Auto) 15.2 H (3-14) % Eos % (Auto) 2.3 (2-4) % Baso % (Auto) 1.6 (0-2) % Neut # (Auto) 5600 (0582-1557) /uL Lymph # (Auto) 1200 (9046-3480) /uL [place] # (Auto) 1300 H (0-900) /uL Eos # (Auto) 200 (0-450) /uL Baso # (Auto) 100 (0-100) /uL PT 10.9 (10.1-12.7) SECONDS INR 1.0 (0.9-1.3) APTT 34 (26.4-36.2) SECONDS D-Dimer 256 H (<230) ng/mL Sodium 134 L (137-145) mmol/L Potassium 3.3 L (3.4-5.1) mmol/L Chloride 99 (98-107) mmol/L Carbon Dioxide 25 (22-32) mmol/L BUN 13 (7-17) mg/dL Creatinine 0.68 (0.52-1.04) mg/dL Estimated GFR > 60.0 (>60) mL/min BUN/Creatinine Ratio 19.1 (6-22) Glucose 108 (80-110) mg/dL Lactate (0.7-2.1) mmol/L Calcium 8.7 (8.4-10.2) mg/dL Total Bilirubin 0.3 (0.2-1.3) mg/dL AST 31 (14-36) IU/L ALT 21 (<35) IU/L Alkaline Phosphatase 56 (38-126) U/L Total Creatine Kinase 93 (30-135) U/L CK-MB (CK-2) TNP CK-MB (CK-2) Rel Index TNP Troponin I < 0.012 (0.01-0.034) ng/mL NT-Pro-B Natriuret Pep 72 (<125) pg/mL Total Protein 7.3 (6.3-8.2) g/dL Albumin 4.1 (3.5-5.0) g/dL Globulin 3.2 (1.7-4.1) g/dL Albumin/Globulin Ratio 1.3 (1.0-2.8) Ethyl Alcohol ( - 10) mg/dL SARS-CoV-2 (PCR) (Negative) 03/01/21 03/01/21 03/01/21 Range/Units 20:14 20:14 20:24 WBC (4.5-11.0) X10^3/uL RBC (4.0-5.2) X10^6/uL Hgb (12.0-16.0) g/dL Hct (36-46) % MCV (80-100) fL MCH (26-34) PG MCHC (30-36) % RDW (11.6-14.8) % Plt Count (150-400) X10^3/uL Neut % (Auto) (50-75) % Lymph % (Auto) (25-40) % [place] % (Auto) (3-14) % Eos % (Auto) (2-4) % Baso % (Auto) (0-2) % Neut # (Auto) (7195-3904) /uL Lymph # (Auto) (6539-3168) /uL [place] # (Auto) (0-900) /uL Eos # (Auto) (0-450) /uL Baso # (Auto) (0-100) /uL PT (10.1-12.7) SECONDS INR (0.9-1.3) APTT (26.4-36.2) SECONDS D-Dimer (<230) ng/mL Sodium (137-145) mmol/L Potassium (3.4-5.1) mmol/L Chloride (98-107) mmol/L Carbon Dioxide (22-32) mmol/L BUN (7-17) mg/dL Creatinine (0.52-1.04) mg/dL Estimated GFR (>60) mL/min BUN/Creatinine Ratio (6-22) Glucose (80-110) mg/dL Lactate 1.4 (0.7-2.1) mmol/L Calcium (8.4-10.2) mg/dL Total Bilirubin (0.2-1.3) mg/dL AST (14-36) IU/L ALT (<35) IU/L Alkaline Phosphatase (38-126) U/L Total Creatine Kinase (30-135) U/L CK-MB (CK-2) CK-MB (CK-2) Rel Index Troponin I (0.01-0.034) ng/mL NT-Pro-B Natriuret Pep (<125) pg/mL Total Protein (6.3-8.2) g/dL Albumin (3.5-5.0) g/dL Globulin (1.7-4.1) g/dL Albumin/Globulin Ratio (1.0-2.8) Ethyl Alcohol 156 H ( - 10) mg/dL SARS-CoV-2 (PCR) Negative (Negative) Imaging Data CT scan - head: Radiologist's Impression: [address] [address] [address] Scan Report Signed Patient: Citlali Johnson MR#: [id number] : 1950 Acct:[id number] Age/Sex: 70 / F Date of Service: 03/01/21 Loc: ED Accession Number: [id number] ?? Procedure: CT head/brain wo con Ordering Provider: Shelley Ng D.O. PROCEDURE:? CT HEAD/BRAIN WO CON ? INDICATIONS:? sneezing fit and syncope. ? TECHNIQUE:? Noncontrast 4.5 mm thick angled axial sections acquired from the foramen magnum to the vertex, with coronal and sagittal reformats.? For radiation dose reduction, the following was used:? automated exposure control, adjustment of mA and/or kV according to patient size.? ? COMPARISON:? None. ? FINDINGS:? Image quality:? Excellent.? ? CSF spaces:? Basal cisterns are patent.? No extra-axial fluid collections.? There is mild cerebral volume loss, with resultant ventricular and sulcal prominence.? ? Brain:? No intracranial hemorrhage, mass, or mass effect.? There are subcortical, periventricular and deep white matter hypodensities consistent with mild chronic small vessel ischemic changes.? A small focal hypodensity in the left caudate head is compatible with a small lacunar infarct of indeterminate acuity.? The warner-white matter junction appears preserved.? There is intracranial internal carotid artery atherosclerosis.? ? Skull and face:? Calvarium and visualized facial bones are intact, without suspicious lesions.? ? Sinuses:? Visualized sinuses and mastoids are clear.? ? IMPRESSION:? ? 1. No definite acute intracranial abnormality. ? 2. Mild cerebral volume loss and chronic white matter small vessel ischemic changes. ? 3. Small hypodense focus within the left caudate head consistent with a small lacunar infarct of indeterminate acuity. ? ? Dictated by: Josef Abernathy M.D. on 03/01/2021 at 21:06 ? ? Approved by: Josef Abernathy M.D. on 03/01/2021 at 21:08 CT - cervical spine: Radiologist's Impression: Close Face CT 03/01/[address] (Signed) Josef Abernathy - 03/01/21 Chest X-Ray 03/01/[address] (Signed) Josef Abernathy - 03/01/21 Abdomen MRI (Signed) Carson Gunn - 05/10/20 Abdomen Ultrasound (Signed) Josef Abernathy - 04/30/20 Mammogram Screening (Signed) Eugene Contreras - 11/07/19 Telemetry Strips 04/28/19 Bone Densitometry 10/13/18 DEXA Result 10/10/18 Mammogram Screening (Signed) Kassie Ponce - 08/25/18 Launch?[place] [address] CT Scan Report Signed Patient: Citlali Johnson MR#: [id number] : 1950 Acct:[id number] Age/Sex: 70 / F Date of Service: 03/01/21 Loc: ED Accession Number: [id number] ?? Procedure: CT cervical spine wo con Ordering Provider: Shelley Ng D.O. PROCEDURE:? CT CERVICAL SPINE WO CON ? INDICATIONS:? sneezing fit and syncope. ? TECHNIQUE:? Noncontrast 3 mm thick sections acquired from the skull base to the T4 level.? Sagittal and coronal reformats were then constructed.? For radiation dose reduction, the following was used:? automated exposure control, adjustment of mA and/or kV according to patient size.? ? COMPARISON:? None. ? FINDINGS:? Image quality:? Excellent.? ? Bones:? No fractures or subluxation.? There is straightening of the cervical lordosis.? Minimal anterolisthesis demonstrated at C3-C4 and C4-C5 as well as minimal retrolisthesis at C5-C6 and C6-C7.? There is moderate to severe degenerative disc disease at C5-C6 and C6-C7 with endplate sclerosis and osteophytosis.? Mild to moderate multilevel facet arthropathy also demonstrated throughout the cervical spine.? Visualized superior ribs are intact.? ? Soft tissues:? Prevertebral soft tissues are normal in thickness.? No paravertebral hematomas.? No apical pneumothoraces.? ? IMPRESSION:? ? 1. No fracture or subluxation. ? 2. Straightening of the cervical lordosis with minimal multilevel spondylolisthesis. ? 3. Moderate to severe degenerative disc disease at C5-C6 and C6-C7.? Dictated by: Josef Abernathy M.D. on 03/01/2021 at 21:09 ? ? Approved by: Josef Abernathy M.D. on 03/01/2021 at 21:11?? Chest x-ray: Radiologist's Impression: [address] [address] XRay Report Signed Patient: Citlali Johnson MR#: [id number] : 1950 Acct:[id number] Age/Sex: 70 / F Date of Service: 03/01/21 Loc: ED Accession Number: [id number] ?? Procedure: XR chest 1V Ordering Provider: Shelley Ng D.O. PROCEDURE:? XR CHEST 1V ? INDICATIONS:? sneezing fit and syncope. ? TECHNIQUE:? One view of the chest was acquired.? ? COMPARISON:? [facility], , CHEST 2 VIEW, 03/08/2013, 12:04. ? FINDINGS:? ? Surgical changes and devices:? None.? ? Lungs and pleura:? There is hyperinflation of the lungs with flattening of the hemidiaphragms compatible with COPD.? No acute consolidation.? No pleural effusions or pneumothorax.? ? Mediastinum:? Mediastinal contours appear normal.? Heart size is normal.? ? Bones and chest wall:? No suspicious bony lesions.? Overlying soft tissues appear unremarkable.? ? IMPRESSION:? ? 1. No definite acute cardiopulmonary disease. ? 2. Findings compatible with COPD.? ? ? Dictated by: Josef Abernathy M.D. on 03/01/2021 at 21:15 ? ? Approved by: Josef Abernathy M.D. on 03/01/2021 at 21:16?? CT facial bones: Radiologist's Impression: Launch?Image [address] [address] [address] Scan Report Signed Patient: Citlali Johnson MR#: [id number] : 1950 Acct:[id number] Age/Sex: 70 / F Date of Service: 03/01/21 Loc: ED Accession Number: [id number] ?? Procedure: CT facial bones wo con Ordering Provider: Shelley Ng D.O. PROCEDURE:? CT FACIAL BONES WO CON ? INDICATIONS:? fall, bruising left cheek, neck pain, syncope v. fall ? TECHNIQUE:? Noncontrast 2.5 mm thick axial images acquired from the mandible through the frontal sinuses, with coronal and sagittal reformatting.? For radiation dose reduction, the following was used:? automated exposure control, adjustment of mA and/or kV according to patient size.? ? COMPARISON:? [facility], CT, CT HEAD/BRAIN WO CON, 03/01/2021, 20:28. ? FINDINGS:? Image quality:? Excellent.? ? Bones and teeth:? Orbital franco are intact.? Sinus franco show no fracture or deformity.? Nasal bones and septum are intact.? Visualized portions of the mandible demonstrate no fractures or subluxation.? Zygomatic arches are intact.? Pterygoid plates are intact.? Visualized portions of the skull base and auditory canals are intact.? ? Sinuses:? Paranasal sinuses are aerated, without fluid levels, mucosal thickening, or mucoceles.? Mastoid air cells are aerated.? ? Soft tissues:? There are bilateral subcutaneous linear fissure calcifications, left greater than right.? No soft tissue lacerations or debris.? No discrete hematoma collections.? The globes appear intact.? No intraorbital fluid collections.? No enlarged lymph nodes.? ? Vascular:? Visualized vascular structures appear normal in the absence of contrast.? Bony vascular foramina and canals are intact.? ? IMPRESSION:? ? 1. No acute facial bone fracture identified. ? 2. Bilateral linear subcutaneous calcifications within the facial soft tissues, left greater than right, are nonspecific but likely dystrophic. ? ? Dictated by: Josef Abernathy M.D. on 03/01/2021 at 21:11 ? ? Approved by: Josef Abernathy M.D. on 03/01/2021 at 21:15?? ECG Data Attestation: I personally reviewed and interpreted this ECG as follows: Prior ECG tracings: not available for review Interpretation: Sinus rhythm rate of 91 OR 168 QRS is 74 and QTC 462. Patient has some possible limb reversal in 3 and aVL but otherwise inverted T-waves in 3 is noted. RSR in V1 V2 with no other acute changes appreciated. Patient does not have prior for comparison. MDM Narrative Medical decision making narrative: This is a 70-year-old female who had fall versus syncopal episode versus other today. Patient has had chronic headaches for the past [address] does not show acute changes there is possible old lacunar infarct. She was clear with her mentation and speech but does have alcohol on board today and this may have contributed to her episode. She has some facial abrasion and bruising but no fractures of the face or neck. She is noted to have degenerative changes. She has some pain on the lateral sides of her neck but nothing midline cervical. She deferred anything for pain and has been ambulatory in the department without issue. Her labs show a slightly low potassium but otherwise no major abnormalities. D-dimer was slightly elevated but when adjusted for age related is negative. Patient otherwise has had reassuring exam here in the department and is recommended to follow-up with her physician for recheck. All labs and imaging were discussed with the patient today. She is able to ambulate safely in the department. Discharge Plan Departure Patient Disposition: Home Clinical Impression: Neck pain, Contusion of face Instructions: DI for Syncope in Adults (Fainting) Activity Restrictions/Additional Instructions: Your imaging today does not show acute changes today. It is noted that you may have had a stroke in the past and you have degenerative changes in your cervical spine. Discuss these findings with your physician. They may perform additional work up to evaluate risk factors for stroke and treat them. It is unclear if you had a fall and were knocked out by striking her head verses a syncopal episode or passed out. It has alcohol on board today which likely contributed to this. I would recommend you follow-up with her physician for recheck. If you have recurrent episodes you should be re-evaluated. You may take Tylenol up to a 1000 mg every 8 hours as needed. You may continue your home medications as prescribed. You may use heat and or ice to her neck if you find this helpful. Prescriptions: No Action Multivitamin See Rx Instructions .ROUTE .COMPLEX RF: 0 triamcinolone acetonide 0.1 % cream 1 applic TOP DAILY Qty: 80 RF: 1 sulfacetamide sodium 10 % shampoo See Rx Instructions .ROUTE .COMPLEX Qty: 237 RF: 11 betamethasone dipropionate 0.05 % lotion 1 applic TOP BID PRN (Reason: itching ) Qty: 60 RF: 11 lamotrigine 250 mg tablet extended release 24hr 250 mg PO HS Qty: 90 RF: 3 clobetasol 0.05 % ointment See Rx Instructions .ROUTE .COMPLEX Qty: 60 RF: 3 metoprolol tartrate 25 mg tablet 12.5 mg PO BID Qty: 90 RF: 0 chlorthalidone 25 mg tablet 25 mg PO DAILY Qty: 90 RF: 0 felodipine 5 mg tablet extended release 24 hr 10 mg PO QDAY Qty: 90 RF: 3 levothyroxine [Synthroid] 112 mcg tablet 112 mcg PO DAILY Qty: 90 RF: 3 methotrexate sodium 7.5 mg tablet 7.5 mg PO QWEEK RF: 0 duloxetine 60 mg capsule,delayed release(DR/EC) 60 mg PO QDAY Qty: 90 RF: 3 simvastatin 20 mg tablet 20 mg PO BEDTIME Qty: 90 RF: 3 clonazepam 0.5 mg tablet See Rx Instructions .ROUTE .COMPLEX Qty: 30 RF: 2 fexofenadine [Bharti Allergy] 60 mg Tablet 60 mg PO SEEINSTR RF: 0 Prilosec OTC 20 mg Tablet,Delayed Release (Dr/Ec) 20 mg PO DAILY PRN (Reason: Heartburn) RF: 0 Referrals: Jc Lewis ARNP [Primary Care Provider] -
[2021-03-01 20:26] LABS: Add Manual Diff / Slide Review NO; Basophils Absolute Auto 100 /uL (0-100); Basophils Percent Auto 1.6 % (0-2); Eosinophils Absolute Auto 200 /uL (0-450); Eosinophils Percent Auto 2.3 % (2-4); Hematocrit 36.2 % (36-46); Hemoglobin 12.7 g/dL (12.0-16.0); Lymphocytes Absolute Auto 1200 /uL (1100-4500); Lymphocytes Percent Auto 14.1 % (25-40); Mean Corpuscular HGB Conc 35.2 % (30-36); Mean Corpuscular Hemoglobin 35.1 PG (26-34); Mean Corpuscular Volume 99.7 fL (80-100); Monocytes Absolute Auto 1300 /uL (0-900); Monocytes Percent Auto 15.2 % (3-14); Neutrophils Absolute Auto 5600 /uL (1500-7000); Neutrophils Percent Auto 66.8 % (50-75); Platelet Count 244 X10^3/uL (150-400); Red Blood Cell Count 3.63 X10^6/uL (4.0-5.2); Red Cell Distribution Width 13.3 % (11.6-14.8); White Blood Cell Count 8.4 X10^3/uL (4.5-11.0)
[2021-03-01 20:28] LABS: Prothrombin Time 10.9 SECONDS (10.1-12.7)
[2021-03-01 20:30] LABS: PTT Partial Thromboplastin Tim 34 SECONDS (26.4-36.2)
[2021-03-01 20:32] LABS: D Dimer 256 ng/mL (<230); Ethanol (ETOH) 156 mg/dL
[2021-03-01 20:33] LABS: Alanine Aminotransferase 21 IU/L (<35); Albumin 4.1 g/dL (3.5-5.0); Albumin Globulin Ratio 1.3 (1.0-2.8); Alkaline Phosphatase 56 U/L (38-126); Aspartate Aminotransferase 31 IU/L (14-36); BUN Creatinine Ratio 19.1 (6-22); Bilirubin Total 0.3 mg/dL (0.2-1.3); Blood Urea Nitrogen 13 mg/dL (7-17); Calcium 8.7 mg/dL (8.4-10.2); Carbon Dioxide 25 mmol/L (22-32); Chloride 99 mmol/L (98-107); Creatine Kinase 93 U/L (30-135); Estimated Glomerular Filt Rate > 60.0 mL/min (>60); Globulin 3.2 g/dL (1.7-4.1); Glucose 108 mg/dL (80-110); HEMOLYSIS < 15 (0-50); Potassium 3.3 mmol/L (3.4-5.1); Sodium 134 mmol/L (137-145); Total Protein 7.3 g/dL (6.3-8.2)
[2021-03-01 20:34] LABS: Lactate (Lactic Acid) 1.4 mmol/L (0.7-2.1)
[2021-03-01 20:41] LABS: COVID19 -Nasal RAPID Negative (Negative)
[2021-03-01 20:45] LABS: NT-proBNP (BNP-Adult 18+) 72 pg/mL (<125); Troponin I < 0.012 ng/mL (0.01-0.034)
[2021-03-01] MEDS: SODIUM CHLORIDE 0.9% 1,000 ML 150 ML IV (20:56)
[2021-03-01 22:04] VITALS: BP 113/76; PULSE 89; RESP 18; O2SAT 99
--- NOTE | 2021-03-06 01:30 | PC.NURSE ---
Pt had NS running from 2055 to 2204 at a rate of 150ml/hr. Fluids stopped at time of discharge.
== END 2021-03-01 22:06 | disposition home or self-care (01) ==
PROVIDERS: Emergency Provider Emergency Medicine; PCP Registered Nurse Diabetes Educator
DX: S00.83XA Contusion of other part of head, initial encounter (principal); M54.2 Cervicalgia; R07.9 Chest pain, unspecified; R55 Syncope and collapse; Z20.822 Contact with and (suspected) exposure to COVID-19
CPT/HCPCS: 36415; 70450; 70486; 71045; 72125; 80053; 80320; 82550; 83605; 83880; 84484; 85025; 85379; 85610; 85730; 87635; 93005; 93010; 96360; 99284; C9803

== ENCOUNTER → 2021-06-05 11:56 | Outpatient (CLI) | payer OTHER, SELFPAY ==
[2021-06-05 12:34] LABS: Add Manual Diff / Slide Review NO; Basophils Absolute Auto 100 /uL (0-100); Basophils Percent Auto 1.5 % (0-2); Eosinophils Absolute Auto 200 /uL (0-450); Eosinophils Percent Auto 4.3 % (2-4); Hematocrit 38.5 % (36-46); Hemoglobin 13.1 g/dL (12.0-16.0); Lymphocytes Absolute Auto 1200 /uL (1100-4500); Lymphocytes Percent Auto 23.5 % (25-40); Mean Corpuscular HGB Conc 34.1 % (30-36); Mean Corpuscular Hemoglobin 34.7 PG (26-34); Mean Corpuscular Volume 101.6 fL (80-100); Monocytes Absolute Auto 700 /uL (0-900); Monocytes Percent Auto 12.9 % (3-14); Neutrophils Absolute Auto 3000 /uL (1500-7000); Neutrophils Percent Auto 57.8 % (50-75); Platelet Count 316 X10^3/uL (150-400); Red Blood Cell Count 3.79 X10^6/uL (4.0-5.2); Red Cell Distribution Width 13.3 % (11.6-14.8); White Blood Cell Count 5.2 X10^3/uL (4.5-11.0)
[2021-06-05 13:12] LABS: Blood Urea Nitrogen 14 mg/dL (7-17); Calcium 9.7 mg/dL (8.4-10.2); Carbon Dioxide 29 mmol/L (22-32); Chloride 99 mmol/L (98-107); Estimated Glomerular Filt Rate > 60.0 mL/min (>60); Glucose 125 mg/dL (80-110); HEMOLYSIS < 15 (0-50); Potassium 3.7 mmol/L (3.4-5.1); Sodium 135 mmol/L (137-145)
== END ==
PROVIDERS: PCP Registered Nurse Diabetes Educator; Referring Provider Physician Assistant; Visit Provider Physician Assistant
DX: Z79.899 Other long term (current) drug therapy (principal); R79.89 Other specified abnormal findings of blood chemistry
CPT/HCPCS: 36415; 80048; 85025

== ENCOUNTER → 2021-06-14 15:43 | Outpatient (CLI) | payer OTHER, SELFPAY ==
[2021-06-14 16:56] LABS: Alanine Aminotransferase 29 IU/L (<35); Albumin 4.3 g/dL (3.5-5.0); Albumin Globulin Ratio 1.4 (1.0-2.8); Alkaline Phosphatase 43 U/L (38-126); Aspartate Aminotransferase 38 IU/L (14-36); Bilirubin Total 0.6 mg/dL (0.2-1.3); Bilirubin Unconjugated 0.6 mg/dL (0.0-1.1); HEMOLYSIS < 15 (0-50); Total Protein 7.3 g/dL (6.3-8.2)
== END ==
PROVIDERS: PCP Registered Nurse Diabetes Educator; Referring Provider Physician Assistant; Visit Provider Physician Assistant
DX: L40.0 Psoriasis vulgaris (principal)
CPT/HCPCS: 36415; 80076

== ENCOUNTER → 2021-08-07 16:40 | Outpatient (CLI) | payer OTHER, SELFPAY ==
[2021-08-07 17:55] LABS: Alanine Aminotransferase 22 IU/L (<35); Albumin 4.6 g/dL (3.5-5.0); Albumin Globulin Ratio 1.3 (1.0-2.8); Alkaline Phosphatase 58 U/L (38-126); Aspartate Aminotransferase 30 IU/L (14-36); Bilirubin Total 0.7 mg/dL (0.2-1.3); Bilirubin Unconjugated 0.5 mg/dL (0.0-1.1); Globulin 3.5 g/dL (1.7-4.1); HEMOLYSIS < 15 (0-50); Total Protein 8.1 g/dL (6.3-8.2)
== END ==
PROVIDERS: PCP Registered Nurse Diabetes Educator; Referring Provider Physician Assistant; Visit Provider Physician Assistant
DX: L40.0 Psoriasis vulgaris (principal)
CPT/HCPCS: 36415; 80076

== ENCOUNTER → 2021-09-03 17:07 | Outpatient (CLI) | payer OTHER, SELFPAY | PROVIDERS: PCP Registered Nurse Diabetes Educator; Visit Provider Physician Assistant | DX: R30.0 Dysuria (principal) | CPT/HCPCS: 87077; 87086; 87186 ==

== ENCOUNTER → 2021-10-29 16:19 | Outpatient (CLI) | payer OTHER, SELFPAY ==
[2021-10-29 16:49] LABS: Hematocrit 37.8 % (36-46); Hemoglobin 13.2 g/dL (12.0-16.0); Mean Corpuscular HGB Conc 34.9 % (30-36); Mean Corpuscular Hemoglobin 35.7 PG (26-34); Mean Corpuscular Volume 102.1 fL (80-100); Platelet Count 325 X10^3/uL (150-400); Red Blood Cell Count 3.71 X10^6/uL (4.0-5.2); Red Cell Distribution Width 12.7 % (11.6-14.8); White Blood Cell Count 5.4 X10^3/uL (4.5-11.0)
[2021-10-29 17:13] LABS: Alanine Aminotransferase 26 IU/L (<35); Albumin 4.4 g/dL (3.5-5.0); Albumin Globulin Ratio 1.4 (1.0-2.8); Alkaline Phosphatase 57 U/L (38-126); Aspartate Aminotransferase 32 IU/L (14-36); Bilirubin Total 0.9 mg/dL (0.2-1.3); Bilirubin Unconjugated 0.8 mg/dL (0.0-1.1); Globulin 3.1 g/dL (1.7-4.1); HEMOLYSIS < 15 (0-50); Total Protein 7.5 g/dL (6.3-8.2)
[2021-10-29 17:15] LABS: Alanine Aminotransferase 27 IU/L (<35); Albumin 4.4 g/dL (3.5-5.0); Albumin Globulin Ratio 1.4 (1.0-2.8); Alkaline Phosphatase 57 U/L (38-126); Aspartate Aminotransferase 32 IU/L (14-36); BUN Creatinine Ratio 15.2 (6-22); Bilirubin Total 0.9 mg/dL (0.2-1.3); Blood Urea Nitrogen 10 mg/dL (7-17); Calcium 9.2 mg/dL (8.4-10.2); Carbon Dioxide 31 mmol/L (22-32); Chloride 96 mmol/L (98-107); Cholesterol 202 mg/dL (140-199); Estimated Glomerular Filt Rate > 60 mL/min (>60); Globulin 3.1 g/dL (1.7-4.1); Glucose 102 mg/dL (80-110); HDL Cholesterol 88 mg/dL (40-60); HEMOLYSIS < 15 (0-50); LDL Cholesterol Calculated 93 mg/dL (<100); Potassium 3.8 mmol/L (3.4-5.1); Sodium 134 mmol/L (137-145); Total Protein 7.5 g/dL (6.3-8.2); Triglycerides 107 mg/dL (35-150)
[2021-10-29 17:39] LABS: TSH w/ Reflex to FT4 < 0.02 uIU/mL (0.47-4.68)
[2021-10-29 18:16] LABS: Free T4, Direct Thyroxine 1.66 ng/dL (0.78-2.19)
== END ==
PROVIDERS: PCP Registered Nurse Diabetes Educator; Referring Provider Physician Assistant; Visit Provider Physician Assistant
DX: E03.9 Hypothyroidism, unspecified (principal); E78.2 Mixed hyperlipidemia; L40.0 Psoriasis vulgaris; K76.0 Fatty (change of) liver, not elsewhere classified
CPT/HCPCS: 36415; 80053; 80061; 80076; 84439; 84443; 85027

== ENCOUNTER → 2021-12-20 12:43 | Outpatient (CLI) | payer OTHER, SELFPAY ==
--- NOTE | 2021-12-20 12:46 | DI.MRI.S_ITS ---
PROCEDURE: MR ANGIO NECK W CON INDICATIONS: eval extracranial, intracranial large arteries TECHNIQUE: Axial and sagittal TruFISP through the neck. Coronal dynamic MRA after the administration of contrast in the arterial and venous phases, with rotating 3-dimensional maximum intensity projection (MIP) reformats constructed from subtraction images. COMPARISON: [facility], , MR ANGIO HEAD WO CON, 12/20/2021, 12:59. FINDINGS: Image quality: Excellent. Carotid system: Great vessels demonstrate a conventional anatomy as they arise from the aortic arch. The origins of the common carotid arteries appear normal. The calibers and courses of the common carotid arteries are likewise normal. The carotid bifurcations appear normal bilaterally. The internal carotid arteries are widely patent up to the [place] of [place]. Posterior circulation: The origins of the vertebral arteries are unremarkable. The more superior extracranial portions of the vertebral arteries demonstrate normal course and caliber. The left vertebral artery is dominant to the right. Miscellaneous: Subclavian arteries are patent throughout. Pre-contrast images through the neck demonstrate no soft tissue abnormalities. IMPRESSION: Within the arteries of the neck, no hemodynamically significant stenosis can be seen. Any quantitative measurements of stenosis were performed using NASCET criteria. Dictated by: Wild Rodríguez M.D. on 12/20/2021 at 12:42 Approved by: Wild Rodríguez M.D. on 12/20/2021 at 12:42
--- NOTE | 2021-12-20 12:46 | DI.MRI.S_ITS ---
PROCEDURE: MR ANGIO HEAD WO CON INDICATIONS: eval extracranial, intracranial large arteries TECHNIQUE: Noncontrast axial 3-D nbjr-me-wqtbci MR angiogram, with 3-dimensional maximum intensity projection (MIP) reformats of the internal carotid arteries and posterior circulation then performed. COMPARISON: [facility], MR, MR ANGIO NECK W CON, 12/20/2021, 13:07. [facility], CT, CT HEAD/BRAIN WO CON, 03/01/2021, 20:28. FINDINGS: Image quality: Excellent. Anterior circulation: Intracranial internal carotid arteries demonstrate normal size and intraluminal flow signal. The flow within the paired anterior cerebral arteries is normal and symmetric. The flow within the middle cerebral arteries is normal and symmetric. The anterior communicating artery is only faintly seen. No stenoses, occlusions, or aneurysms. Posterior circulation: The right distal vertebral artery largely terminates in the right posterior inferior cerebral artery. The left V4 segment is within normal limits. There is a normal appearing basilar artery. The flow within the posterior cerebral arteries is normal and symmetric. No stenoses, occlusions, or aneurysms. IMPRESSION: No significant intracranial arterial abnormality is seen. Dictated by: Wild Rodríguez M.D. on 12/20/2021 at 12:39 Approved by: Wild Rodríguez M.D. on 12/20/2021 at 12:41
== END ==
PROVIDERS: PCP Registered Nurse Diabetes Educator; Referring Provider Registered Nurse Diabetes Educator; Visit Provider Registered Nurse Diabetes Educator
DX: I65.29 Occlusion and stenosis of unspecified carotid artery (principal); I63.81 Other cerebral infarction due to occlusion or stenosis of small artery
CPT/HCPCS: 70544; 70548

== ENCOUNTER → 2022-01-01 14:43 | Outpatient (CLI) | payer OTHER, SELFPAY ==
--- NOTE | 2022-01-01 14:44 | DI.MG.S_ITS ---
BILATERAL DIGITAL SCREENING MAMMOGRAM 3D/2D WITH CAD: 01/01/2022 CLINICAL: Routine screening. Comparison is made to exams dated: 11/07/2019 mammogram, 08/25/2018 mammogram, 02/01/2016 mammogram, and 11/22/2014 mammogram - [facility]. There are scattered areas of fibroglandular density in both breasts (category b / 25%-50% glandular tissue). Current study was also evaluated with a Computer Aided Detection (CAD) system. No significant masses, calcifications, or other findings are seen in either breast. There has been no significant interval change. IMPRESSION: NEGATIVE There is no mammographic evidence of malignancy. A 1 year screening mammogram is recommended. Based on the Tyrer Cuzick model (a risk assessment model) the patient's lifetime risk is 4.3% and her 10 year risk is 2.5%. According to the ACR, ACS, and NCCN guidelines, an annual breast MRI exam along with mammogram is recommended if the patient's lifetime risk is 20% or greater. This exam was interpreted at Station ID: [id number]. NOTE: For mammograms, a report in lay terms will be sent to the patient. Approximately 15% of breast malignancies will not be visualized mammographically. In the management of a palpable breast mass, a negative mammogram must not discourage biopsy of a clinically suspicious lesion. Electronically Signed By: Gt lopez/mindi:01/01/2022 17:25:20 copy to: JERMAINE SOLIS letter sent: Normal Exam ACR BI-RADS Category 1: Negative [id number]
== END ==
PROVIDERS: PCP Registered Nurse Diabetes Educator; Referring Provider Registered Nurse Diabetes Educator; Visit Provider Registered Nurse Diabetes Educator
DX: Z12.31 Encounter for screening mammogram for malignant neoplasm of breast (principal); M81.0 Age-related osteoporosis without current pathological fracture; M85.89 Other specified disorders of bone density and structure, multiple sites
CPT/HCPCS: 77063; 77067; 77080

== ENCOUNTER → 2022-01-06 14:47 | Outpatient (CLI) | payer OTHER, SELFPAY ==
[2022-01-06 17:10] LABS: TSH w/ Reflex to FT4 < 0.02 uIU/mL (0.47-4.68)
[2022-01-06 18:37] LABS: Free T4, Direct Thyroxine 1.57 ng/dL (0.78-2.19)
== END ==
PROVIDERS: PCP Registered Nurse Diabetes Educator; Referring Provider Registered Nurse Diabetes Educator; Visit Provider Registered Nurse Diabetes Educator
DX: E03.9 Hypothyroidism, unspecified (principal)
CPT/HCPCS: 36415; 84439; 84443

== ENCOUNTER → 2022-04-01 12:42 | Outpatient (CLI) | payer OTHER, SELFPAY ==
[2022-04-01 15:13] LABS: Vitamin D 25 Hydroxy (D3) 37.6 ng/mL (30.0-100.0)
[2022-04-01 17:40] LABS: TSH w/ Reflex to FT4 2.01 uIU/mL (0.47-4.68)
== END ==
PROVIDERS: PCP Registered Nurse Diabetes Educator; Referring Provider Registered Nurse Diabetes Educator; Visit Provider Registered Nurse Diabetes Educator
DX: E03.9 Hypothyroidism, unspecified (principal); M81.0 Age-related osteoporosis without current pathological fracture
CPT/HCPCS: 36415; 82306; 84443

== ENCOUNTER → 2022-11-28 14:49 | Outpatient (CLI) | payer OTHER, SELFPAY ==
[2022-11-28 15:07] LABS: Add Manual Diff / Slide Review NO; Basophils Absolute Auto 100 /uL (0-100); Basophils Percent Auto 1.1 % (0-2); Eosinophils Absolute Auto 200 /uL (0-450); Hematocrit 38.2 % (36-46); Hemoglobin 13.3 g/dL (12.0-16.0); Lymphocytes Absolute Auto 1700 /uL (1100-4500); Lymphocytes Percent Auto 17.5 % (25-40); Mean Corpuscular HGB Conc 34.8 % (30-36); Mean Corpuscular Hemoglobin 33.8 PG (26-34); Mean Corpuscular Volume 97.2 fL (80-100); Monocytes Absolute Auto 1400 /uL (0-900); Monocytes Percent Auto 13.7 % (3-14); Neutrophils Absolute Auto 6500 /uL (1500-7000); Neutrophils Percent Auto 65.7 % (50-75); Platelet Count 353 X10^3/uL (150-400); Red Blood Cell Count 3.93 X10^6/uL (4.0-5.2); Red Cell Distribution Width 11.9 % (11.6-14.8); White Blood Cell Count 9.9 X10^3/uL (4.5-11.0)
[2022-11-28 15:19] LABS: Alanine Aminotransferase 30 IU/L (<35); Albumin 4.3 g/dL (3.5-5.0); Alkaline Phosphatase 83 U/L (38-126); Aspartate Aminotransferase 41 IU/L (14-36); BUN Creatinine Ratio 18.1 (6-22); Bilirubin Total 0.8 mg/dL (0.2-1.3); Blood Urea Nitrogen 13 mg/dL (7-17); Calcium 8.9 mg/dL (8.4-10.2); Carbon Dioxide 28 mmol/L (22-32); Chloride 94 mmol/L (98-107); Estimated Glomerular Filt Rate > 60 mL/min (>60); Globulin 4.1 g/dL (1.7-4.1); Glucose 105 mg/dL (80-110); HEMOLYSIS < 15 (0-50); Potassium 3.2 mmol/L (3.4-5.1); Sodium 133 mmol/L (137-145); Total Protein 8.4 g/dL (6.3-8.2)
[2022-12-01 19:34] LABS: ANA Screen, IFA Negative (.)
[2022-12-02 14:08] LABS: QuantiFERON Mitogen Value >10.00 IU/mL (.); QuantiFERON Nil Value 0.07 IU/mL (.); QuantiFERON TB Gold Plus Negative (Negative); QuantiFERON TB1 Ag Value 0.09 IU/mL (.)
== END ==
PROVIDERS: PCP Registered Nurse Diabetes Educator; Referring Provider Physician Assistant; Visit Provider Physician Assistant
DX: L40.0 Psoriasis vulgaris (principal)
CPT/HCPCS: 36415; 80053; 85025; 86038; 86480

== ENCOUNTER → 2023-02-11 13:13 | Outpatient (CLI) | payer OTHER, SELFPAY ==
[2023-02-11 15:09] LABS: Alanine Aminotransferase 32 IU/L (<35); Albumin 4.2 g/dL (3.5-5.0); Albumin Globulin Ratio 1.1 (1.0-2.8); Alkaline Phosphatase 73 U/L (38-126); Aspartate Aminotransferase 40 IU/L (14-36); BUN Creatinine Ratio 14.5 (6-22); Bilirubin Total 0.7 mg/dL (0.2-1.3); Blood Urea Nitrogen 11 mg/dL (7-17); Calcium 9.1 mg/dL (8.4-10.2); Carbon Dioxide 26 mmol/L (22-32); Chloride 95 mmol/L (98-107); Cholesterol 196 mg/dL (140-199); Estimated Glomerular Filt Rate > 60 mL/min (>60); Glucose 103 mg/dL (80-110); HDL Cholesterol 78 mg/dL (40-60); HEMOLYSIS < 15 (0-50); LDL Cholesterol Calculated 88 mg/dL (<100); Potassium 3.4 mmol/L (3.4-5.1); Sodium 133 mmol/L (137-145); Total Protein 8.2 g/dL (6.3-8.2); Triglycerides 150 mg/dL (35-150)
[2023-02-11 15:39] LABS: TSH w/ Reflex to FT4 2.64 uIU/mL (0.47-4.68)
[2023-02-11 18:04] LABS: Vitamin D 25 Hydroxy (D3) 34.2 ng/mL (30.0-100.0)
== END ==
PROVIDERS: PCP Registered Nurse Diabetes Educator; Referring Provider Registered Nurse Diabetes Educator; Visit Provider Registered Nurse Diabetes Educator
DX: K76.0 Fatty (change of) liver, not elsewhere classified (principal); I10 Essential (primary) hypertension; M81.0 Age-related osteoporosis without current pathological fracture; R74.8 Abnormal levels of other serum enzymes; E03.9 Hypothyroidism, unspecified; E78.2 Mixed hyperlipidemia
CPT/HCPCS: 36415; 80053; 80061; 82306; 84443

== ENCOUNTER → 2023-02-20 15:12 | Outpatient (CLI) | payer OTHER, SELFPAY ==
--- NOTE | 2023-02-20 15:14 | DI.RAD.S_ITS ---
PROCEDURE: XR LUMBAR SPINE 2-3V INDICATIONS: eval LBP TECHNIQUE: 3 views of the lumbar spine were acquired. COMPARISON: None. FINDINGS: Bones: 5 dmz-vfl-gwdpjor vertebrae are present. There is mildly dextroscoliotic alignment. No vertebral body compression fractures. No suspicious bony lesions. Note is made of pode-wu-mpnpuaow degenerative disc disease and moderate facet osteoarthritis over the lower half of the lumbosacral spine and most prominent at L4-5 and L5-S1. Mild grade 1 anterolisthesis of L4 on L5 is present as a result. Soft tissues: Overlying bowel gas pattern is normal. No suspicious soft tissue calcifications. IMPRESSION: No compression fracture is seen but there is xilt-mv-xaawkjyf degenerative change most prominent at the facet joints of L4-5 and L5-S1 with mild grade 1 anterolisthesis of L4 on L5. Dictated by: Carson Gunn M.D. on 02/20/2023 at 16:11 Approved by: Carson Gunn M.D. on 02/20/2023 at 16:13
== END ==
PROVIDERS: PCP Registered Nurse Diabetes Educator; Referring Provider Registered Nurse Diabetes Educator; Visit Provider Registered Nurse Diabetes Educator
DX: M47.816 Spondylosis without myelopathy or radiculopathy, lumbar region (principal); M47.817 Spondylosis without myelopathy or radiculopathy, lumbosacral region; M43.16 Spondylolisthesis, lumbar region; M54.50 Low back pain, unspecified; G89.29 Other chronic pain
CPT/HCPCS: 72100

== ENCOUNTER → 2023-03-13 16:18 | Outpatient (CLI) | payer OTHER, SELFPAY ==
--- NOTE | 2023-03-13 16:19 | DI.MRI.S_ITS ---
PROCEDURE: MR LUMBAR SPINE WO CON INDICATIONS: eval LBP TECHNIQUE: Noncontrast sagittal T1 spin echo and T2 fast echo, sagittal STIR, and T2 fast spin echo through the lumbar spine. In cases with scoliosis, additional coronal T2 fast spin echo may be performed. COMPARISON: None. FINDINGS: Image quality: Diagnostic, with note made of motion artifact. Alignment and Curvature: There is minimal retrolisthesis seen at the L2-L3 level, with minimal anterolisthesis at L3-L4. Mild anterolisthesis is seen at L4-L5, without associated pars defects. Bone Marrow: The bone marrow is diffusely heterogeneous, yet without a focally suspicious bone marrow lesion. No abnormal STIR signal is seen. No acute vertebral body compression fractures. Spinal Cord: Conus medullaris terminates at the L1 level. Visualized cord demonstrates normal signal and size. Paraspinous Soft Tissues: No paravertebral masses. T12-L1: No significant abnormality is seen. L1-L2: The disc height and disk signal are well-preserved. Mild generalized disc bulge is seen. Mild facet joint hypertrophy is seen. No neural foraminal narrowing is seen. Mild to moderate central canal narrowing is seen. L2-L3: The disc height and disk signal are relatively well-preserved. Moderate generalized disc bulge is seen. There is a superimposed central disc protrusion. Mild facet joint hypertrophy is seen. There is sltm-wj-hzhmxvuv left-sided and no significant right-sided neural foraminal narrowing. Moderate central canal narrowing is seen. L3-L4: Mild loss of disc height is seen. Loss of disc signal is seen. Moderate disc bulge is seen, which is eccentric to the left. There is a central disc protrusion. Annular fissures can be seen, as on series 6, image 25 and on series 4, image 5. At least moderate facet hypertrophy is seen. Associated hypertrophy of the ligamentum flavum can be seen. Moderate bilateral neural foraminal narrowing can be seen, left worse than right. Severe central canal narrowing is seen, as on series 6, image 25. L4-L5: Mild loss of disc height is seen. Loss of disc signal is seen. At least moderate disc bulge is seen, with a central disc extrusion, with mild superior migration of the disc material, as on series 2, image 8. There is a focal annular fissure seen posteriorly. At least moderate facet hypertrophy is seen. Associated hypertrophy of the ligamentum flavum can be seen. Fluid is seen within the facet joints themselves. Moderate to severe bilateral neural foraminal narrowing can be seen, right worse than left. There is a degree of compression seen upon the exiting nerve roots. Severe central canal narrowing is seen, as on series 6, image 31. L5-S1: The disc height and disk signal are relatively well-preserved. Mild generalized disc bulge is seen. At least moderate facet hypertrophy is seen. Fluid is seen within the facet joints themselves. There is mild right-sided and moderate left-sided neural foraminal narrowing. Mild central canal narrowing is seen. IMPRESSION: Multiple levels of lumbar spine degenerative change can be seen, including severe central canal narrowing at L3-L4 and L4-L5. Several sites of significant neural foraminal narrowing can be seen, with associated exiting nerve root compression. Annular fissures can be seen at L3-L4 and L4-L5. Dictated by: Wild Rodríguez M.D. on 03/13/2023 at 16:53 Approved by: Wild Rodríguez M.D. on 03/13/2023 at 16:57
== END ==
PROVIDERS: PCP Registered Nurse Diabetes Educator; Referring Provider Registered Nurse Diabetes Educator; Visit Provider Registered Nurse Diabetes Educator
DX: M47.816 Spondylosis without myelopathy or radiculopathy, lumbar region (principal); M47.817 Spondylosis without myelopathy or radiculopathy, lumbosacral region; M48.061 Spinal stenosis, lumbar region without neurogenic claudication; M48.07 Spinal stenosis, lumbosacral region; M51.A4 Intervertebral annulus fibrosus defect, small, lumbosacral region; M54.50 Low back pain, unspecified; G89.29 Other chronic pain
CPT/HCPCS: 72148

== ENCOUNTER → 2023-06-01 14:14 | Outpatient (CLI) | payer OTHER, SELFPAY ==
--- NOTE | 2023-06-01 | DI.NM.S_ITS ---
PROCEDURE: NM SHELLY PERF SPECT R&S PHARM Rest and pharmacological stress myocardial perfusion SPECT with gated imaging and ejection fraction RADIOPHARMACEUTICAL: 26.4 mCi Tc-99m tetrafosmin IV at rest and 25.7 mCi Tc-99m tetrafosmin IV at peak effect of pharmacological stress. Qhx-uzj-ublijkvy was performed. INDICATIONS: Preoperative Evaluation TECHNIQUE: Radiopharmaceutical was injected at peak stress test, and also at rest. SPECT images were obtained. SPECT myocardial perfusion images were displayed in short axis, horizontal long axis, and vertical long axis views. Gated images were reviewed using EduKart software. COMPARISON: None. CARDIAC STRESS: A pharmacologic stress test was performed under the supervision of an attending staff, using an infusion of regadenoson 0.4 mg IV. Hemodynamic data: There is normal blood pressure and heart rate response to pharmacologic stress. Symptoms: The patient denied anginal chest pain. EKG: No diagnostic changes of ischemia; no ectopy. FINDINGS: Raw data: There is good myocardial uptake of radiotracer. No significant motion artifacts. Xleq-rq-pyoof ratio is 0.29 (normal is less than 0.38 for tetrafosmin tracer). Left ventricle function: Gated images demonstrate normal left ventricular wall thickening. No segmental wall motion abnormalities. No transient ischemic dilation; TID is 0.46 (normal less than 1.3). Left ventricle resting end diastolic volume is 45 mL. Left ventricle stress ejection fraction is >75%; normal range is above 45%. Myocardial perfusion: There is normal distribution of activity in the right and left ventricular myocardium. No fixed or reversible perfusion defects. IMPRESSION: Low risk study. No evidence of pharmacologic induced ischemia or scar. Small LV cavity size with hyperdynamic function. Dictated by: Joie Martines D.O. on 06/03/2023 at 16:49 Approved by: Joie Martines D.O. on 06/03/2023 at 16:51
== END ==
LOC: NUCM 14:15
PROVIDERS: PCP Registered Nurse Diabetes Educator; Referring Provider Registered Nurse Diabetes Educator; Visit Provider Registered Nurse Diabetes Educator
DX: I63.81 Other cerebral infarction due to occlusion or stenosis of small artery (principal); I10 Essential (primary) hypertension; E78.2 Mixed hyperlipidemia; Z01.818 Encounter for other preprocedural examination
CPT/HCPCS: 78452; 93017; A9502; J2785

== ENCOUNTER → 2023-06-03 08:37 | Outpatient (CLI) | payer OTHER, SELFPAY ==
[2023-06-03 09:31] LABS: Add Manual Diff / Slide Review NO; Basophils Absolute Auto 100 /uL (0-100); Eosinophils Absolute Auto 200 /uL (0-450); Eosinophils Percent Auto 1.9 % (2-4); Hematocrit 38.9 % (36-46); Hemoglobin 13.8 g/dL (12.0-16.0); Lymphocytes Absolute Auto 1900 /uL (1100-4500); Lymphocytes Percent Auto 24.8 % (25-40); Mean Corpuscular HGB Conc 35.5 % (30-36); Mean Corpuscular Hemoglobin 34.6 PG (26-34); Mean Corpuscular Volume 97.7 fL (80-100); Monocytes Absolute Auto 900 /uL (0-900); Monocytes Percent Auto 11.9 % (3-14); Neutrophils Absolute Auto 4700 /uL (1500-7000); Neutrophils Percent Auto 60.4 % (50-75); Platelet Count 372 X10^3/uL (150-400); Red Blood Cell Count 3.99 X10^6/uL (4.0-5.2); Red Cell Distribution Width 11.6 % (11.6-14.8); White Blood Cell Count 7.8 X10^3/uL (4.5-11.0)
[2023-06-03 10:15] LABS: Alanine Aminotransferase 32 IU/L (<35); Albumin 3.9 g/dL (3.5-5.0); Albumin Globulin Ratio 1.1 (1.0-2.8); Alkaline Phosphatase 71 U/L (38-126); Aspartate Aminotransferase 41 IU/L (14-36); BUN Creatinine Ratio 13.8 (6-22); Bilirubin Total 0.7 mg/dL (0.2-1.3); Blood Urea Nitrogen 11 mg/dL (7-17); Carbon Dioxide 31 mmol/L (22-32); Chloride 95 mmol/L (98-107); Estimated Glomerular Filt Rate > 60 mL/min (>60); Globulin 3.6 g/dL (1.7-4.1); Glucose 103 mg/dL (80-110); HEMOLYSIS < 15 (0-50); Potassium 3.6 mmol/L (3.4-5.1); Sodium 134 mmol/L (137-145); Total Protein 7.5 g/dL (6.3-8.2)
[2023-06-03 10:43] LABS: TSH w/ Reflex to FT4 2.15 uIU/mL (0.47-4.68)
== END ==
PROVIDERS: PCP Registered Nurse Diabetes Educator; Referring Provider Registered Nurse Diabetes Educator; Visit Provider Registered Nurse Diabetes Educator
DX: Z01.818 Encounter for other preprocedural examination (principal); I63.81 Other cerebral infarction due to occlusion or stenosis of small artery; I10 Essential (primary) hypertension; E78.2 Mixed hyperlipidemia; E87.6 Hypokalemia; D69.6 Thrombocytopenia, unspecified; E03.9 Hypothyroidism, unspecified
CPT/HCPCS: 36415; 80053; 84443; 85025

== ENCOUNTER → 2023-06-15 16:00 | Outpatient (CLI) | payer OTHER, SELFPAY ==
--- NOTE | 2023-06-15 16:01 | DI.ECHO.S_ITS ---
[place] +---------+ [facility] +---------+ : : [address] : : : : [id number] : : : : Phone: [phone] Echocardiogram Report + + :Name: KATIE LEE Study Date: 06/15/2023 Height: 64 in : :[facility] ReadingLocation: Weight: 145 lb : : Gender: Female BSA: 1.7 m2 : :: 1950 Age: 72 yrs BP: 116/83 mmHg: :Reason For Study: ABNORMAL RESULT OF OTHER CARDIOVASCULAR : :FUNCTION : :Ordering Physician: MEHDI, : :DOTTIE Performed By: Eugene Ríos : :Referring: DOTTIE HARDING : + + Interpretation Summary The left ventricle is normal in size and wall thickness. The left ventricular ejection fraction is normal. The ejection fraction is estimated to be 60-65%. The right ventricle is normal in size and function. No significant valvular pathology seen. The IVC is of normal diameter and collapses greater than 50% with a sniff. This suggests a low right atrial pressure of 3 mm Hg. Procedure: A two-dimensional transthoracic echocardiogram with color flow and Doppler was performed. The study quality was technically adequate. There is no prior echocardiogram noted for this patient. The patient was in normal sinus rhythm during the exam. The heart rate ranged between 61-69 bpm during the study. Left Ventricle: The left ventricle is normal in size and wall thickness. There is no thrombus. The ejection fraction is estimated to be 60-65%. The left ventricular ejection fraction is normal. There are no focal wall motion abnormalities. Diastolic parameters suggest a relaxation abnormality of the left ventricle, consistent with probable normal filling pressures. Right Ventricle: The right ventricle is normal in size and function. The right ventricular systolic function is normal. Atria: The left atrial size is normal. Right atrial size is normal. The interatrial septum grossly appears intact with no obvious evidence for an atrial septal defect. Mitral Valve: The mitral valve is normal in structure and function. There is no mitral valve stenosis. There is trace mitral regurgitation. Aortic Valve: The aortic valve is trileaflet. There is discrete nodular thickening of the non- coronary cusp. The aortic valve is mildly calcified. There is no aortic valve stenosis. No aortic regurgitation is present. Tricuspid Valve: The tricuspid valve is normal in structure and function. There is no tricuspid stenosis. There is trace tricuspid regurgitation. Pulmonary artery pressures cannot be estimated because of the lack of a measurable TR jet velocity. Pulmonic Valve: The pulmonic valve is not well visualized. There is no pulmonic valvular stenosis. There is no pulmonic valvular regurgitation. Great Vessels: The aortic root is normal size. The dimensions of the ascending aorta are normal. The IVC is of normal diameter and collapses greater than 50% with a sniff. This suggests a low right atrial pressure of 3 mm Hg. Pericardium/ Pleura There is no pericardial effusion. There is an anterior echo-free space consistent with a fat pad. There is no pleural effusion. MMode/2D Measurements & Calculations LVIDd: 4.1 cm LVOT diam: 1.9 cm LVIDs: 2.7 cm Ao root diam: 3.1 cm FS: 34.8 % asc Aorta Diam: 3.2 cm IVSd: 1.0 cm Ao Arch Diam (Prox Trans): 2.4 cm LVPWd: 0.85 cm LV fernandez. diameter/BSA (cm/m^2): 2.4 LV sys. diameter/BSA (cm/m^2): 1.6 LA A2 area: 16.2 cm2 RA long axis: 3.3 cm LA A4 area: 13.8 cm2 RA area: 8.1 cm2 LA length (vol): 4.9 cm RA vol: 16.7 ml LA vol: 38.9 ml RA : 9.8 ml/m2 LA vol index: 22.8 ml/m2 RVD1 (basal): 3.0 cm RVD2 (mid): 2.8 cm TAPSE: 1.8 cm Doppler Measurements & Calculations Ao V2 max: 116.1 cm/sec LVOT Max Candelario: 118.4 cm/sec Ao V2 mean: 83.6 cm/sec LV V1 max P.6 mmHg Ao max P.4 mmHg LV V1 VTI: 28.3 cm Ao mean P.1 mmHg PAOLO(I,D): 3.0 cm2 Ao V2 VTI: 27.4 cm PAOLO(V,D): 2.9 cm2 sev ratio: 1.0 PAOLO indexed to BSA (cm^2/m^2): 1.7 MV E max candelario: 64.8 cm/sec PA V2 max: 79.0 cm/sec MV A max candelario: 91.3 cm/sec PA V2 mean: 56.8 cm/sec MV E/A: 0.71 PA mean P.4 mmHg Med Peak E' Candelario: 7.2 cm/sec PA pr(Accel): 36.2 mmHg E/E' med: 9.0 Lat Peak E' Candelario: 8.2 cm/sec E/E' lat: 7.9 E/e' average: 8.4 MV dec time: 0.27 sec SV(LVOT): 81.5 ml Reading Physician:05:38 PM
== END ==
LOC: ECHO 16:01
PROVIDERS: PCP Registered Nurse Diabetes Educator; Referring Provider Registered Nurse Diabetes Educator; Visit Provider Registered Nurse Diabetes Educator
DX: R94.39 Abnormal result of other cardiovascular function study (principal)
CPT/HCPCS: 93306

== ENCOUNTER → 2023-10-06 15:50 | Outpatient (CLI) | payer OTHER, SELFPAY ==
--- NOTE | 2023-10-06 15:52 | DI.MG.S_ITS ---
BILATERAL DIGITAL SCREENING MAMMOGRAM 3D/2D WITH CAD: 10/06/2023 CLINICAL: Routine screening. Comparison is made to exams dated: 01/01/2022 mammogram, 11/07/2019 mammogram, and 08/25/2018 mammogram - . There are scattered areas of fibroglandular density in both breasts (category b / 25%-50% glandular tissue). Current study was also evaluated with a Computer Aided Detection (CAD) system. No significant masses, calcifications, or other findings are seen in either breast. There has been no significant interval change. IMPRESSION: NEGATIVE There is no mammographic evidence of malignancy. A 1 year screening mammogram is recommended. Based on the Tyrer Cuzick model (a risk assessment model) the patient's lifetime risk is 4.0% and her 10 year risk is 2.8%. According to the ACR, ACS, and NCCN guidelines, an annual breast MRI exam along with mammogram is recommended if the patient's lifetime risk is 20% or greater. This exam was interpreted at Station ID: [id number]. NOTE: For mammograms, a report in lay terms will be sent to the patient. Approximately 15% of breast malignancies will not be visualized mammographically. In the management of a palpable breast mass, a negative mammogram must not discourage biopsy of a clinically suspicious lesion. Electronically Signed By: Larry machado/mindi:10/07/2023 16:49:36 copy to: JERMAINE SOLIS letter sent: Normal Exam ACR BI-RADS Category 1: Negative 3341F
== END ==
PROVIDERS: PCP Registered Nurse Diabetes Educator; Referring Provider Registered Nurse Diabetes Educator; Visit Provider Registered Nurse Diabetes Educator
DX: Z12.31 Encounter for screening mammogram for malignant neoplasm of breast (principal); R92.323 Mammographic fibroglandular density, bilateral breasts
CPT/HCPCS: 77063; 77067

== ENCOUNTER → 2024-06-09 14:52 | Outpatient (CLI) | payer OTHER, SELFPAY ==
[2024-06-09 15:41] LABS: Add Manual Diff / Slide Review NO; Basophils Absolute Auto 0 /uL (0-100); Basophils Percent Auto 0.6 % (0-2); Eosinophils Absolute Auto 100 /uL (0-450); Eosinophils Percent Auto 1.2 % (2-4); Hematocrit 38.1 % (36-46); Hemoglobin 13.2 g/dL (12.0-16.0); Lymphocytes Absolute Auto 1500 /uL (1100-4500); Mean Corpuscular HGB Conc 34.6 % (30-36); Mean Corpuscular Hemoglobin 34.1 PG (26-34); Mean Corpuscular Volume 98.7 fL (80-100); Monocytes Absolute Auto 1000 /uL (0-900); Monocytes Percent Auto 13.3 % (3-14); Neutrophils Absolute Auto 4700 /uL (1500-7000); Neutrophils Percent Auto 63.9 % (50-75); Platelet Count 339 X10^3/uL (150-400); Red Blood Cell Count 3.86 X10^6/uL (4.0-5.2); Red Cell Distribution Width 12.3 % (11.6-14.8); White Blood Cell Count 7.3 X10^3/uL (4.5-11.0)
[2024-06-09 16:09] LABS: Alanine Aminotransferase 32 IU/L (<35); Albumin 4.3 g/dL (3.5-5.0); Albumin Globulin Ratio 1.4 (1.0-2.8); Alkaline Phosphatase 74 U/L (38-126); Aspartate Aminotransferase 37 IU/L (14-36); BUN Creatinine Ratio 13.1 (6-22); Bilirubin Total 0.8 mg/dL (0.2-1.3); Blood Urea Nitrogen 11 mg/dL (7-17); Calcium 9.2 mg/dL (8.4-10.2); Carbon Dioxide 30 mmol/L (22-32); Chloride 93 mmol/L (98-107); Cholesterol 196 mg/dL (140-199); Estimated Glomerular Filt Rate > 60 mL/min (>60); Globulin 3.1 g/dL (1.7-4.1); Glucose 102 mg/dL (80-110); HDL Cholesterol 82 mg/dL (40-60); HEMOLYSIS < 15 (0-50); LDL Cholesterol Calculated 81 mg/dL (<100); Potassium 3.3 mmol/L (3.4-5.1); Sodium 132 mmol/L (137-145); Total Protein 7.4 g/dL (6.3-8.2); Triglycerides 165 mg/dL (35-150)
[2024-06-09 18:01] LABS: TSH w/ Reflex to FT4 1.68 uIU/mL (0.47-4.68)
== END ==
PROVIDERS: PCP Registered Nurse Diabetes Educator; Referring Provider Registered Nurse Diabetes Educator; Visit Provider Registered Nurse Diabetes Educator
DX: K76.0 Fatty (change of) liver, not elsewhere classified (principal); E03.9 Hypothyroidism, unspecified; R74.8 Abnormal levels of other serum enzymes; I10 Essential (primary) hypertension
CPT/HCPCS: 36415; 80053; 80061; 84443; 85025

== ENCOUNTER → 2024-07-05 15:07 | Outpatient (CLI) | payer OTHER, SELFPAY ==
[2024-07-05 16:26] LABS: BUN Creatinine Ratio 12.5 (6-22); Blood Urea Nitrogen 10 mg/dL (7-17); Calcium 9.2 mg/dL (8.4-10.2); Carbon Dioxide 28 mmol/L (22-32); Chloride 93 mmol/L (98-107); Estimated Glomerular Filt Rate > 60 mL/min (>60); Glucose 86 mg/dL (80-110); HEMOLYSIS < 15 (0-50); Sodium 132 mmol/L (137-145)
[2024-07-05 16:47] LABS: Vitamin D 25 Hydroxy (D3) 59.2 ng/mL (30.0-100.0)
[2024-07-05 17:01] LABS: Potassium 3.7 mmol/L (3.4-5.1)
== END ==
PROVIDERS: PCP Registered Nurse Diabetes Educator; Referring Provider Registered Nurse Diabetes Educator; Visit Provider Registered Nurse Diabetes Educator
DX: M81.0 Age-related osteoporosis without current pathological fracture (principal); I10 Essential (primary) hypertension
CPT/HCPCS: 80048; 82306

== ENCOUNTER 2024-11-08 09:24 | Day surgery (SDC) | payer OTHER, SELFPAY ==
--- NOTE | 2024-11-07 13:04 | EKG_ITS ---
[address] [address] Test Date: 2024-11-08 Pat Name: Citlali Johnson Department: [facility] Room: Gender: Female Postbed Stitcher: TOVA : 1950 Requested By: Order Number: [id number] Reading MD: Monroe Presley Measurements Intervals [place] Rate: 75 P: -23 VA: 182 QRS: -11 QRSD: 80 T: -8 QT: 416 QTc: 464 Interpretive Statements Normal sinus rhythm Electronically Signed On 11-10-2024 13:33:01 PDT by Monroe Presley
--- NOTE | 2024-11-08 | PATH_ITS ---
[facility] Accession Number: [id number] No. of containers..02 Tissue . 01 Material submitted: . PART A: colon - COLON, SIGMOID POLYP PART B: colon - COLON, DESCENDING POLYP . 01 Diagnosis: Part A: COLON, SIGMOID POLYP: Hyperplastic polyp. . Part B: COLON, DESCENDING POLYP: Hyperplastic polyp. STO 11/16/2024 1531 Local . 01 Electronically signed: . Josef Domínguez MD, Pathologist NPI- [id number] . 01 Gross description: . Part A: COLON, SIGMOID POLYP: Received in formalin are 3 fragment(s) of serna, soft tissue measuring 0.3 x 0.3 x 0.2 cm to 0.8 x 0.6 x 0.4 cm submitted entirely in 1 cassette(s) . Part B: COLON, DESCENDING POLYP: Received in formalin are 2 fragment(s) of serna, soft tissue measuring 0.1 x 0.1 x 0.1 cm to 0.3 x 0.3 x 0.2 cm submitted entirely in 1 cassette(s) /GÓMEZ 11/16/2024 1531 Local . 01 Pathologist provided ICD-10: K63.5 . 01 CPT . 113256, [id number] Specimen Comment: A courtesy copy of this report has been sent to [facility] Pathology Performed at: [address] [address], [place], [place] [id number] MD Josef Domínguez MD Phone: [phone]
[2024-11-08 09:39] VITALS: BP 128/85; PULSE 93; RESP 14; TEMP 36.1; O2SAT 96
--- NOTE | 2024-11-08 10:43 | PM.HP.IH.1 ---
History of Present Illness History of Present Illness Date Patient Seen: 11/08/24 Time Patient Seen: 10:43 Chief complaint: Screening Colonoscopy Narrative: Presents for screening colonoscopy today. H/O tubular adenoma 2020. PFSH Medical History Chronic low back pain Psoriasis Fatty liver Constipation GERD (gastroesophageal reflux disease) Former smoker, stopped smoking in distant past Environmental allergies Eczema Hypothyroidism Hypertension Hyperlipidemia Surgical History History of loop electrical excision procedure (LEEP) Anesthesia Fracture of wrist History of cataract removal with insertion of prosthetic lens (~2013) Status post loop electrosurgical excision procedure (LEEP) of cervix (~2013) Status post tonsillectomy and adenoidectomy Status post breast reduction Family History Father Age: 99 Cataracts, bilateral Chronic obstructive pulmonary disease, unspecified COPD type Mother Cerebrovascular accident (CVA), unspecified mechanism Congestive heart failure Sister Cataracts, bilateral Social History household members: none Smoking Status: Never smoker Tobacco: How many years used: 20 second hand exposure: No alcohol intake: former substance use type: does not use Meds Home Medications and Allergies Home Medications ?Medication ?Instructions ?Recorded ?Confirmed ?Type Multivitamin See Rx Instructions .Route .COMPLEX 02/22/18 11/08/24 History betamethasone dipropionate 0.05 % 1 applic topical BID PRN itching 11/21/20 07/05/24 Rx lotion #60 mL triamcinolone acetonide 0.1 % 1 applic topical DAILY #80 grams 11/21/20 07/05/24 Rx topical cream calcipotriene 0.005 % topical cream applic topical 01/29/23 07/05/24 History clobetasol 0.05 % scalp solution topical 01/29/23 07/05/24 History clobetasol 0.05 % topical cream topical 01/29/23 07/05/24 History dupilumab 300 mg/2 mL subcutaneous 300 mg SUBCUT Q2W 01/29/23 11/08/24 History pen injector (Dupixent) mupirocin 2 % topical ointment 1 applic topical 05/06/23 07/05/24 History Synthroid 100 mcg tablet 100 mcg PO DAILY #90 tabs 07/05/24 11/08/24 Rx (levothyroxine) atorvastatin 20 mg tablet 20 mg PO BEDTIME #90 tabs 07/05/24 11/08/24 Rx chlorthalidone 25 mg tablet 25 mg PO DAILY #90 tabs 07/05/24 11/08/24 Rx duloxetine 60 mg capsule,delayed 60 mg PO QDAY #90 caps 07/05/24 11/08/24 Rx release felodipine 2.5 mg tablet,extended 2.5 mg PO DAILY #90 tabs 07/05/24 11/08/24 Rx release 24 hr metoprolol tartrate 25 mg tablet 25 mg PO BID #180 tabs 07/05/24 11/08/24 Rx clonazepam 0.5 mg tablet See Rx Instructions .Route 07/10/24 11/08/24 Rx .COMPLEX #30 tabs peg 3350-electrolytes 236 240 ml PO Q10M #4,000 mL 11/02/24 Rx gram-22.74 gram-6.74 gram-5.86 gram solution (Golytely) Allergies Allergy/AdvReac Type Severity Reaction Status Date / Time oxycodone (OXYCODONE) AdvReac Intermediate NAUSEA AND Verified 11/08/24 09:57 VOMITING lisinopril (LISINOPRIL) AdvReac Mild COUGH Verified 11/08/24 09:57 Exam Vital Signs (past 8 hours): - 11/08/24 09:39 Temperature 96.9 F L Pulse Rate 93 H Respiratory Rate 14 Blood Pressure 128/85 Pulse Oximetry 96 Oxygen Delivery Method Room Air Oxygen Delivery Method Room Air Const General: comfortable Orientation: alert and oriented x3 Eyes Conjunctivae: conjunctivae normal Sclera: sclerae normal EOM: EOM intact bilaterally Resp Effort & Inspection: normal respiratory effort Auscultation: clear to auscultation bilaterally Cardio Rate: regular rate Rhythm: regular rhythm GI Palpation: soft (nontender) Extrem Other: Without pitting edema Objective Labs Labs: Laboratory Results - last 24 hr 11/08/24 09:47 POC Whole Bld Glucose 155 H Assessment & Plan Assessment and plan (1) Encounter for screening colonoscopy: Status: Acute Assessment & Plan narrative: Plan screening polypectomy, possible polypectomy. The risks, benefits and options regarding the procedure were explained to the patient in detail. Risk discussion included but not limited to: bleeding, perforation, missed lesion, unable to reach cecum. The patient was encouraged to ask questions and they were answered to their satisfaction. The patient understands and is agreeable to proceed. Time-Based Coding :: [TOTAL MINUTES] spent with patient and on the chart (including review of chart, obtaining history, exam, reviewing outside data, placing orders, documenting exam and treatment plan, and counseling patient) on [DATE]. PROFEE Adjuster Leader Document charge(s): Yes Charge Codes Initial inpatient/observation care: [id number]
[2024-11-08 11:34] VITALS: BP 110/65; PULSE 78; RESP 12; TEMP 37; O2SAT 98
--- NOTE | 2024-11-08 11:34 | P.OP.COLON_ITS ---
Operative Date/Time/Diagnoses Date of procedure: 11/08/24 Time of procedure: 11:35 Pre-op diagnosis: H/O polyps, needs screening colonoscopy Post-op diagnosis: same Procedure & Clinicians Study performed: Colonoscopy with polypectomy Same procedure(s) as scheduled: Yes Indications: 74yo F, h/o colon polyps, needs screening colonoscopy Surgeon: [place] Anesthesia Type: MAC +/- Procedure Notes SCOAP/Timeout: Performed Procedure in detail: Patient placed in left lateral recumbent position. Time out was performed. Procedural sedation was administered by anesthesia. Examination began with a thorough inspection of the perianal area. There was no evidence of fissures, fistulae, external hemorrhoids or cutaneous malignancy. The colonoscope was then placed into the rectum and the lumen was insufflated with carbon dioxide. The scope was carefully advanced forward. Ultimately the cecum was intubated and confirmed by identification of the ileocecal valve, the appendiceal orifice and the confluence of the taenia. The scope was then slowly withdrawn examining the colon thoroughly in all directions. In the rectum, retroflexion of the scope was performed for inspection of the distal rectum and anal canal. ?The colonoscopy was notable for the following: ?1. Quality of the preparation-good, [place] 2-3 ?2. Multiple 3mm sessile, benign appearing polyps, removed with cold snare and retrieved for pathology, sigmoid x 2, descending x 1 3. Plan repeat colonoscopy in 5 years, pathology, pending Scope withdrawal time: 15 minutes Findings: polyp(s) Specimen(s): other (polyps) Complications: none Impression: Multiple sessile polyps removed Plan repeat colonoscopy in 5 years Post-procedure Recommendations: Colonoscopy in 5 years Plan for aftercare: PACU Home Resume regular diet Follow up: as needed Disposition: PACU
[2024-11-08 11:40] VITALS: BP 109/75; PULSE 78; RESP 13; TEMP 36.1; O2SAT 98
[2024-11-08 11:45] VITALS: BP 126/80; PULSE 74; RESP 11; O2SAT 98
== END 2024-11-08 12:30 | disposition home or self-care (01) ==
PROVIDERS: PCP Registered Nurse Diabetes Educator; Referring Provider Surgery; Visit Provider Surgery
PROC: 0DJD8ZZ Inspection of Lower Intestinal Tract, Via Natural or Artificial Opening Endoscopic (ICD-10-PCS; CPT 45378; principal; 2024-11-08 10:15)
DX: Z12.11 Encounter for screening for malignant neoplasm of colon (principal); Z86.0101 Personal history of adenomatous and serrated colon polyps; K63.5 Polyp of colon
CPT/HCPCS: 45385; 82962; 93005; J2704

== ENCOUNTER → 2024-12-27 | Outpatient (CLI) | payer OTHER, SELFPAY ==
--- NOTE | 2024-12-27 14:03 | DI.MG.S_ITS ---
MM screening mammo BI: 12/27/2024. BI-RADS: 1 CLINICAL: 74-year old female for bilateral screening mammogram. Tyrer-Cuzick lifetime risk of 2.5%. No personal or first-degree family history of breast cancer. The patient is status-post reduction mammoplasty. PRIOR EXAMS 10/06/2023, 01/01/2022, 11/07/2019, 08/25/2018. MAMMOGRAPHY TECHNIQUE: 2D and 3D (tomosynthesis) digital mammographic views obtained, with additional images as needed for full coverage. Current study was also evaluated with a Computer Aided Detection (CAD) system. DENSITY B. There are scattered areas of fibroglandular density. MAMMOGRAPHY FINDINGS Bilateral: No suspicious mass, asymmetry, microcalcification, or other abnormality seen. IMPRESSION: * No evidence of malignancy. RECOMMENDATIONS Bilateral * Annual screening mammography. OVERALL ASSESSMENT CATEGORY BI-RADS-1: Negative. The [employer] recommends annual screening mammography beginning at age 40 for women with average risk of breast cancer. ELECTRONICALLY SIGNED: Stephanie Womack M.D. on 12/27/2024 at 02:29:42 PM PT Interpreting Station ID: [id number]
== END ==
LOC: MAMMO 14:02
PROVIDERS: PCP Registered Nurse Diabetes Educator; Referring Provider Registered Nurse Diabetes Educator; Visit Provider Registered Nurse Diabetes Educator
DX: Z12.31 Encounter for screening mammogram for malignant neoplasm of breast (principal)
CPT/HCPCS: 77063; 77067